=== PATIENT | female | born 1970 | race Native Hawaiian/Other Pacific Islander ===

== ENCOUNTER 2021-03-11 10:27 | Emergency (ER) | payer MEDICARE, MEDICAID, SELFPAY ==
[2021-03-11 10:29] VITALS: BP 161/99; PULSE 88; RESP 16; TEMP 36.6; O2SAT 96; BMI 44.6
--- NOTE | 2021-03-11 10:49 | CT_ITS ---
STUDY: CT BRAIN WITHOUT CONTRAST REASON FOR EXAM: Female, 51 years old. headache, dizzy RADIATION DOSAGE (If Supplied By Facility): CTDIvol = ( 44.99 ) mGy, DLP = ( 846.73 ) mGycm TECHNIQUE: Transaxial CT imaging of the brain was performed without administration of intravenous contrast material. Individualized dose optimization techniques were used for this CT. COMPARISON: No relevant priors. FINDINGS: Normal soft tissue structures. Normal calvarium. Normal size ventricles and extra-axial spaces for the patient''s age. Normal white matter tracts of the cerebral hemispheres. Normal basal ganglia and thalami. Normal brainstem. Normal cerebellum. There is no intracranial hemorrhage. There are no findings of an acute ischemic infarction. Normal visualized paranasal sinuses. CT/Brain/Head without Contrast IMPRESSION: Normal unenhanced CT scan of the brain. Electronically Signed: Nata David MD at 12:39 EDT Tel , Service support ,
--- NOTE | 2021-03-11 10:54 | ED.VIS.GEN ---
History of Present Illness Chief Complaint: Dizziness Informant: Patient Onset: Weeks - 2-3 Narrative: Patient here multiple complaints. reports past 2 to 3 weeks noted significant drainage bilateral ears. Denies pain or fevers. States wakes up noting drainage on pillows. Today with sinus congestion. No sore throat. No cough. States intermittent dizziness and headache. No falls or head injuries. History of lupus not currently on anticoagulation medicines. States has skin changes to lupus to right side of face and ear. Denies any redness. States also is having cramping bilateral arms and legs upon awakening. She states no history of diuretic use. Denies urinary symptoms. Perimenopausal with last menstrual period a month ago. Reports just moved here from [place] 2 months ago and has an appointment to get established with a physician. Past Medical History - Allergies and Home Meds Allergies/Adverse Reactions: Allergies codeine Adverse Reaction (Verified 03/11/21 10:29) Upset Stomach Past Medical History: - - Hypertension, diabetes, hyperlipidemia, lupus Review of Systems General: Denies: Chills, Fever, Sweats Eyes: Denies: Visual changes - bilaterally, Diplopia ENT: Denies: Bilateral ear pain, Rhinorrhea, Sore throat Cardiovascular: Denies: Chest pain, Palpitations Respiratory: Denies: Dyspnea, Cough, Dyspnea on exertion Gastrointestinal: Denies: Abdominal pain, Nausea, Vomiting, Diarrhea, Melena, Hematochezia Genitourinary: Denies: Dysuria, Hematuria, Frequency Musculoskeletal: Reports: Myalgias. Denies: Back pain, Extremity Pain Skin: Denies: Rash, Wounds Neurological: Reports: Headache, - - dizzy. Denies: Weakness, Numbness Physical Exam Vital Signs/Narrative: Vital Signs Temp Pulse Resp BP Pulse Ox 03/11/21 10:29 98 F 88 16 161/99 H 96 General: Well nourished, Well developed, No Acute Distress Head: Normocephalic, Atraumatic, - - TMs normal bilaterally. Mild erythema of the turbinates bilaterally. No posterior pharyngeal erythema. Eyes: Perrl, EOMI ENT: Moist mucous membranes, No rhinorrhea Neck: Supple, Nontender, - - No meningismus Cardiovascular: Regular rate, Regular rhythm, No murmurs Respiratory: No distress, CTA bilaterally, Chest nontender Abdomen: Soft, Nontender, Nondistended, Normal bowel sounds Back: Nontender, Normal Inspection Extremities: Nontender, No edema, - - Soft compartments of arms and legs. Skin: Normal color, No rash Neurological: Alert, Oriented x3, Cranial nerves II-XII grossly intact, Normal Strength, Normal Sensation Psychological: Normal affect, Normal Mood Diagnostic/Tx/Re-eval - Medical Decision Making Clinical Impression(s) from Imaging Studies Brain CT 03/11/21 10:49 IMPRESSION: Normal unenhanced CT scan of the brain. Electronically Signed: Nata David MD at 12:39 EDT Tel , Service support , Abnormal Lab Results 03/11/21 03/11/21 03/11/21 11:00 11:00 13:02 WBC 11.7 H RBC 4.35 Hgb 12.9 Hct 38.5 MCV 88.5 MCH 29.7 MCHC 33.5 RDW Std Deviation 42.4 RDW Coeff of Yoandy 13.2 Plt Count 360 MPV 9.9 Immature Gran % (Auto) 1.500 H Neut % (Auto) 53.1 Lymph % (Auto) 36.1 [place] % (Auto) 6.3 Eos % (Auto) 2.3 Baso % (Auto) 0.7 Absolute Neuts (auto) 6.2 Absolute Lymphs (auto) 4.21 Nucleated RBC % 0 Sodium 133 L Potassium 4.0 Chloride 98 Carbon Dioxide 26.0 Anion Gap 9 BUN 17 Creatinine 0.88 Estim Creat Clear Calc 66.04 Est GFR (MDRD) Af Amer 87 Est GFR (MDRD) Non-Af 72 BUN/Creatinine Ratio 19.3 Glucose 264 H Calcium 9.4 Urine Color Straw Urine Clarity Sl. Cloudy Urine pH 6.0 Ur Specific [place] 1.015 Urine Protein 30 H Urine Glucose (UA) 1000 H Urine Ketones Negative Urine Occult Blood Negative Urine Nitrite Negative Urine Bilirubin Negative Urine Urobilinogen Normal Ur Leukocyte Esterase Negative Urine RBC 0 SEEN Urine WBC 0 SEEN Ur Squamous Epith Cells 0-5 SEEN Urine Bacteria RARE Urine Mucus 0 SEEN Urine Test Negative Patient vitals stable with no focal neurological deficits. Presenting with multiple complaints. Ear examination notes normal TMs with no perforations. No signs of infection. CT head obtained for headache and dizziness which was normal. Labs all stable except for glucose of 264 normal gap. She has history of diabetes. Urine noted glucose from her diabetes history however no infection. She is up ambulating department with no return of symptoms. Discussed monitoring symptoms and following up with her scheduled PCP visit. ED Disposition - Plan for ED Patient: Disposition: Home or Assisted Living Diagnosis: Headache, Dizziness, Diabetes, Cramps, extremity Instructions: ED Dizziness, Uncertain Cause, Understanding Headache Pain, What Is Type 2 Diabetes? Additional Instructions: Monitor symptoms follow-up with your scheduled PCP visit.
[2021-03-11 11:16] LABS: Absolute Lymphocyte Count 4.21 X10^3/uL (0.83-4.51); Absolute Neutrophil Count 6.2 X10^3/uL (2.0-7.7); Basophil# 0.08 X10^3/uL; Basophil% 0.7 % (0-1); Eosinophil# 0.27 X10^3/uL; Eosinophils% 2.3 % (0-5); Hematocrit 38.5 % (37-47); Hemoglobin 12.9 g/dL (12.0-15.0); Lymphocyte # 4.21 X10^3/ul (0.83-4.51); Lymphocyte % 36.1 % (19-41); Mean Corp Hgb Conc 33.5 g/dL (32-36); Mean Corpuscular Hgb 29.7 pg (27.0-32.0); Mean Corpuscular Volume 88.5 fL (81-99); Mean Platelet Vol. 9.9 fl (6.2-12.0); Monocyte# 0.73 X10^3/uL; Monocyte% 6.3 % (0-10); NRBC Flagged by Analyzer 0 % (0-5); Neutrophil # 6.19 X10^3/uL (2.7-7.7); Neutrophil % 53.1 % (47-70); Platelet Count 360 K/mm3 (150-450); RBC Distribution Width CV 13.2 % (11.6-14.6); RBC Distribution Width SD 42.4 fl (35.1-43.9); Red Blood Count 4.35 M/mm3 (4.2-5.4); White Blood Count 11.7 K/mm3 (4.4-11.0)
[2021-03-11 11:24] LABS: Anion Gap 9 (5-15); BUN 17 mg/dL (7-18); BUN/Creat Ratio 19.3 RATIO (10-20); Calcium,Total 9.4 mg/dL (8.5-10.1); Chloride 98 mmol/L (98-107); Creatinine, Serum 0.88 mg/dL (0.55-1.02); EST Glomerular Filtration Rate 72 mL/min (>60); Est Glom Filt Rate - Afr Amer 87 mL/min (>60); Estimated Creatinine Clearance 66.04 ml/min; Glucose 264 mg/dL (74-106); Sodium Level 133 mmol/L (136-145)
[2021-03-11] MEDS: Ondansetron 4 MG/2 ML Vial IV (11:25)
[2021-03-11 13:13] LABS: Color, Urine Straw (Yellow); Glucose, Dipstick 1000 mg/dl (Normal); Ketone-Dipstick Negative (Negative); Leukocyte Esterase-Dipstick Negative /ul (Negative); Mucous, Urine 0 SEEN /hpf (<or=2+); Nitrite-Dipstick Negative (Negative); Occult Blood-Urine Negative /ul (Negative); Protein-Dipstick 30 mg/dl (Negative); Red Blood Cells-Urine 0 SEEN /hpf (0-5); Specific Gravity, Urine 1.015 (1.002-1.030); Urine Bilirubin Dipstick Negative (Negative); Urine Clarity Sl. Cloudy (Clear); Urine Urobilinogen Normal (Normal); White Blood Cells 0 SEEN /hpf (0-5)
[2021-03-11 13:16] LABS: Internal QC Validated? YES +Cl - CLEAR BKGD; Pregnancy, Urine Negative Negative
[2021-03-11 13:19] LABS: Bacteria RARE /hpf (None Seen); Squamous Epithelial Cells - UA 0-5 SEEN /hpf (5-10)
[2021-03-11 13:29] VITALS: BP 105/64; PULSE 77; RESP 16; O2SAT 98
[2021-03-11 13:58] VITALS: BP 124/67; PULSE 78; RESP 16; TEMP 36.8; O2SAT 98
== END 2021-03-11 13:59 | disposition home or self-care (01) ==
PROVIDERS: Emergency Provider Emergency Medicine
DX: R42 Dizziness and giddiness (principal); R51.9 Headache, unspecified; E11.9 Type 2 diabetes mellitus without complications; R25.2 Cramp and spasm; I10 Essential (primary) hypertension; E78.5 Hyperlipidemia, unspecified; M32.9 Systemic lupus erythematosus, unspecified; Z88.5 Allergy status to narcotic agent
CPT/HCPCS: 70450; 80048; 81001; 81025; 85025; 96361; 96374; 99283; J7030; A4216; J2405

== ENCOUNTER 2021-04-09 17:20 | Emergency (ER) | payer MEDICARE, MEDICAID, SELFPAY ==
[2021-04-09 17:20] VITALS: BP 131/88; PULSE 89; RESP 15; TEMP 36.7; O2SAT 95; BMI 44.9
--- NOTE | 2021-04-09 18:18 | RAD_ITS ---
STUDY: X-RAY CHEST REASON FOR EXAM: Female, 51 years old. Cough. Runny nose and cough for one day. History of pneumonia 3-4 weeks ago. TECHNIQUE: Single AP portable view of the chest. COMPARISON: None. FINDINGS: The lungs are well expanded. No focal mass or infiltrate. There is no demonstrated pleural abnormality. Normal size heart. Normal mediastinum and leonela. Normal visualized pulmonary arteries. Normal visualized aortic arch and descending thoracic aorta. There are diffuse degenerative changes of the visualized thoracic spine. There is degenerative osteoarthritis of the bilateral shoulders. There is no demonstrated abnormality of the visualized soft tissue structures of the upper abdomen. RAD/Chest 1 View (Portable) IMPRESSION: Degenerative changes, as described above. No demonstrated acute cardiopulmonary process. Electronically Signed: Pilo Jane DO at 18:44 EDT Tel [phone], Service support ,
[2021-04-09 19:34] LABS: Probe Check PASS; Specimen Processing Control PASS
--- NOTE | 2021-04-09 19:40 | EX.ED.DYSGE1 ---
HPI History of Present Illness Chief Complaint: Cold Sx Narrative Narrative: Patient presenting for evaluation secondary to cold type symptoms. Patient does report that she has an underlying history of smoking and asthma. She states that around a month ago she had a chest x-ray that demonstrated pneumonia she went on a course of antibiotics and she got better. Patient states that in the last 24 hours she has had another onset of upper respiratory type symptoms. She reports that she has nasal congestion, drainage down the back of her throat, and a cough that is intermittently productive. She does state that she feels mildly short of breath associated with this. She states that she has sweats but has not actually taken her temperature at home. Patient denies any chest pain. She denies any nausea or vomiting. She does report that in the week prior to this she had some mild loose stools, no blood or mucus in her stool. She denies any immunosuppression. Review of systems otherwise negative. [facility] Medical History Diabetes Hypertension Hypothyroidism Home Medications fluticasone propionate [Allergy Relief (fluticasone)] 1 spray INTRANASAL BID #16 g 04/09/21 [Rx Last Taken Unknown] Allergy/AdvReac Type Severity Reaction Status Date / Time codeine AdvReac Upset Verified 03/11/21 10:29 Stomach Social History Smoking Status: Current every day smoker [facility] ED Constitutional Constitutional ED: Reports chills and sweats; Denies fever(s) ENT ENT ED: Reports rhinorrhea and sore throat Cardiovascular Cardiovascular: Denies chest pain Respiratory/Chest Respiratory/Chest: Reports cough and dyspnea Gastrointestinal Gastrointestinal: Reports diarrhea; Denies abdominal pain, nausea or vomiting Genitourinary Genitourinary ED: Denies dysuria or hematuria Musculoskeletal Musculoskeletal: Denies back pain Integumentary Denies rash Neurologic Neurologic: Denies paresthesias or weakness Psychiatric Psychiatric: Denies depression Endocrine Endocrinology: Denies fatigue Allergic/Immunologic Allergic/Immunologic ED: Denies urticaria EXAM Physical Exam Const Vital Signs: 04/09/21 17:20 04/09/21 17:25 Temperature 98.1 F Temperature Source Temporal Pulse Rate 89 Respiratory Rate 15 Respiratory Effort Normal Non-Labored Respiratory Pattern Normal Blood Pressure 131/88 H Blood Pressure Mean 102 Pulse Ox 95 Oxygen Delivery Method Room Air Room Air Positive well nourished and well developed General Appearance ED: well developed and NAD HEENT Reports moist mucous membranes HEENT Narrative: No signs of posterior pharyngeal erythema asymmetry or posterior fullness. Negative for trauma or tenderness Eyes EOMs intact bilaterally Neck no lymphadenopathy, supple and no JVD Chest Wall inspection of chest normal Resp normal respiratory effort and clear to auscultation bilaterally Cardio regular rate, regular rhythm, no murmurs and peripheral pulses 2+ throughout GI normal to inspection, nondistended, normoactive bowel sounds, non-tender and no masses Palpation: soft Back/Spine normal to inspection Extremity normal to inspection General Extremety ED: Negative for tenderness Neuro oriented x3 and no sensory deficits noted Sensorium / Orientation: alert Motor Exam: strength 5/5 throughout Psych mental status grossly normal Skin no rashes or lesions noted MDM MDM MDM Narrative Medical decision making narrative: Patient presented with respiratory complaints and was concerned that she potentially had a coronavirus infection. A chest x-ray was obtained due to her recent history of pneumonia, by my personal interpretation as well as radiology this found to be negative. Coronavirus testing was found to be negative. Patient will be discharged with a course of Flonase and other symptomatic treatments. She was discharged in stable condition. Lab Data Labs: Laboratory Results - last 24 hr 04/09/21 18:20 COVID-19 (LOY) Negative Radiography Chest X-Ray - ED: Read by ED Physician and Normal Diagnostic Testing: Radiology Impression Chest X-Ray 04/09/21 18:18 IMPRESSION: Degenerative changes, as described above. No demonstrated acute cardiopulmonary process. Electronically Signed: Pilo Jane DO at 18:44 EDT Tel [phone], Service support , Discharge Plan Triage Chief Complaint: Cold Sx ED Provider: Ramiro Cabrera Dx/Rx/DC Orders Clinical Impression: Upper respiratory tract infection Instructions: ED URI, Viral, No Abx (Adult) Prescriptions: New fluticasone propionate [Allergy Relief (fluticasone)] 50 mcg/actuation spray,suspension 1 spray intranasal BID Qty: 16 RF: 0 Referrals: Tea Holbrook [NON-STAFF] - Disposition Disposition: Home, self care
[2021-04-09 19:54] VITALS: RESP 20
== END 2021-04-09 19:54 | disposition home or self-care (01) ==
PROVIDERS: Emergency Provider Emergency Medicine
DX: J06.9 Acute upper respiratory infection, unspecified (principal); Z87.01 Personal history of pneumonia (recurrent); F17.200 Nicotine dependence, unspecified, uncomplicated; E11.9 Type 2 diabetes mellitus without complications; I10 Essential (primary) hypertension; E03.9 Hypothyroidism, unspecified; J45.909 Unspecified asthma, uncomplicated
CPT/HCPCS: 71045; 87635; 99282; U0002

== ENCOUNTER 2021-04-12 16:05 | Emergency (ER) | payer MEDICARE, MEDICAID, SELFPAY ==
[2021-04-12 16:06] VITALS: BP 140/79; PULSE 94; RESP 16; TEMP 35.7; O2SAT 94; BMI 46.5
[2021-04-12 16:21] LABS: Bedside Glucose 382 mg/dL (70-110)
--- NOTE | 2021-04-12 16:41 | EKG12_ITS ---
Test Reason : Blood Pressure : / mmHG Vent. Rate : 084 BPM Atrial Rate : 084 BPM P-R Int : 194 ms QRS Dur : 086 ms QT Int : 360 ms P-R-T Axes : 046 028 042 degrees QTc Int : 425 ms Normal sinus rhythm Normal ECG Confirmed by BECKIE RENAE, IVAN ([id number]), social media editor TINY MONET ([id number]) on 04/15/2021 9:34:04 AM Referred By: RU Confirmed By:IVAN BUTTS MD
--- NOTE | 2021-04-12 16:43 | ED.VIS.DYS ---
HPI History of Present Illness Chief Complaint: Shortness of Breath Detail of Chief Complaint: Patient with shortness of breath and cough for about a week Informant: patient Narrative Narrative: Patient seen in the emergency department 3 days ago for complaint of cough. She had a negative Covid test. Patient denies exposures to anybody with Covid. She has not been vaccinated against Covid. Patient states that she has been feeling short of breath at times and also has history of severe anxiety so she is not sure what is causing her dyspnea. She continues to cough and the cough is mostly nonproductive. She denies fever but she has had sweats. Patient has history of diabetes as well as hypertension and history of chronic back pain. She denies headache. She does have body aches which are relatively chronic. PE Risk Factors: Positive for OCP + Smoking + > 35; Negative for Cancer, Prior DVT or PE, Recent immobilization, Recent surgery and Recent travel Prior similar symptoms: No PFSH PFSH Medical History Diabetes Hypertension Hypothyroidism Home Medications fluticasone propionate [Allergy Relief (fluticasone)] 1 spray INTRANASAL BID #16 g 04/09/21 [Rx Last Taken Unknown] doxycycline monohydrate 100 mg PO BID #20 capsule 04/12/21 [Rx Last Taken Unknown] Allergy/AdvReac Type Severity Reaction Status Date / Time codeine AdvReac Upset Verified 04/12/21 16:05 Stomach Social History Smoking Status: Current every day smoker [facility] ED Constitutional Constitutional ED: Reports systems reviewed and no addt'l complaints, except as documented; Denies body ache(s), change in weight or chills Eyes Eyes: Denies acute decrease in peripheral vision, change in vision, double vision or loss of vision ENT ENT ED: Reports none; Denies ear pain, lip swelling, loss taste/smell, neck pain, otalgia or sore throat Cardiovascular Cardiovascular: Reports none; Denies abdominal pain, chest pain with activity, leg edema, lightheadedness, palpitations, rapid heart rate or syncope Respiratory/Chest Respiratory/Chest: Reports none, cough and dyspnea; Denies change in mental status, dry cough, hemoptysis, shortness of breath at rest, shortness of breath with exertion or sputum Gastrointestinal Gastrointestinal: Reports none; Denies abdominal pain, change in stool character, diarrhea, hematemesis, hematochezia, melena, rectal bleeding or vomiting Genitourinary Genitourinary ED: Reports none; Denies abdominal discomfort, anuria, dysuria, genital pain or polyuria Musculoskeletal Musculoskeletal: Reports none; Denies arthralgias, back pain, difficulty walking, extremity pain, muscle weakness or myalgias Integumentary Reports none; Denies abscess or rash Neurologic Neurologic: Reports none; Denies abnormal gait, confusion, focal weakness, frequent falls, headache(s), loss of vision, numbness, paresthesias, radicular pain, vertigo or weakness Psychiatric Psychiatric: Reports systems reviewed and no addt'l complaints, except as documented and none; Denies behavioral changes, confusion, difficulty concentrating, hallucinations, suicidal ideation, tactile hallucinations or visual hallucinations Endocrine Endocrinology: Denies none, cold intolerance, excessive sweating, fatigue or heat intolerance Hematologic/Lymphatic Hematologic/Lymphatic: Reports none; Denies anemia, easy bleeding or easy bruising Allergic/Immunologic Allergic/Immunologic ED: Denies as per HPI, none, lip swelling, mouth swelling, throat swelling, tongue swelling or hives EXAM Physical Exam Const Vital Signs: 04/12/21 16:06 04/12/21 17:11 04/12/21 18:57 Temperature 96.3 F L Temperature Source Temporal Pulse Rate 94 86 Respiratory Rate 16 18 Respiratory Effort Short of Breath Respiratory Depth Normal Respiratory Pattern Normal Blood Pressure 140/79 H 127/89 H Blood Pressure Mean 99 101 Pulse Ox 94 97 Oxygen Delivery Method Room Air Room Air Room Air Positive well nourished and well developed General Appearance ED: well developed and NAD HEENT Reports TM's clear and moist mucous membranes normocephalic and atraumatic; Negative for trauma or tenderness Tympanic Membrane ED: Yes TM's clear Eyes PERRL and EOMs intact bilaterally General Eye ED: Negative for pale conjunctiva or scleral icterus Neck no lymphadenopathy, supple and no JVD General: Negative for tenderness Chest Wall inspection of chest normal and palpation of chest normal Chest: Negative for tenderness Resp normal respiratory effort and No clear to auscultation bilaterally Effort and Inspection: Negative for respiratory distress or pain with movement Auscultation: rhonchi and wheezes; Negative for diminished lung sounds Cardio regular rate, regular rhythm, S1 normal heart sound, S2 normal heart sound and no murmurs Peripheral Pulses: pulses 2+ throughout GI normal to inspection, nondistended, normoactive bowel sounds, soft to palpation, non-tender, non-distended and no masses Back/Spine no CVA tenderness and no thoracic nor lumbar tenderness Extremity normal to inspection General Extremety ED: Negative for edema General Extremity: Negative for edema Neuro oriented x3, CN's II-XII intact bilaterally, no sensory deficits noted and gait normal Sensorium / Orientation: awake, alert, oriented to person, oriented to place and oriented to time Motor Exam: strength 5/5 throughout and strength abnormal Psych mental status grossly normal Skin no rashes or lesions noted and no wounds MDM MDM MDM Narrative Medical decision making narrative: Patient was given albuterol MDI and felt improved. I will cover her with doxycycline to cover for bacterial etiology as she is coughing up some green to yellow sputum. Patient will be dispensed the albuterol MDI. She is advised to return if increasing shortness of breath or condition should worsen anyway. Patient to follow-up with her primary care physician within next 3 to 5 days. Lab Data Attestation: I reviewed the patient's lab results. Labs: Laboratory Results - last 24 hr 04/12/21 04/12/21 04/12/21 16:15 17:00 17:00 WBC 11.6 H RBC 4.35 Hgb 12.9 Hct 38.7 MCV 89.0 MCH 29.7 MCHC 33.3 RDW Std Deviation 41.5 RDW Coeff of Yoandy 12.6 Plt Count 374 MPV 9.9 Immature Gran % (Auto) 0.900 Neut % (Auto) 57.0 Lymph % (Auto) 29.6 [place] % (Auto) 8.4 Eos % (Auto) 3.5 Baso % (Auto) 0.6 Absolute Neuts (auto) 6.6 Absolute Lymphs (auto) 3.44 Nucleated RBC % 0 D-Dimer Quant (PE/DVT) 0.29 Sodium Potassium Chloride Carbon Dioxide Anion Gap BUN Creatinine Estim Creat Clear Calc Est GFR (MDRD) Af Amer Est GFR (MDRD) Non-Af BUN/Creatinine Ratio Glucose Lactic Acid Calcium COVID-19 (LOY) POC Glucose 382 H 05/22/21 05/22/21 05/22/21 17:00 17:00 17:07 WBC RBC Hgb Hct MCV MCH MCHC RDW Std Deviation RDW Coeff of Yoandy Plt Count MPV Immature Gran % (Auto) Neut % (Auto) Lymph % (Auto) [place] % (Auto) Eos % (Auto) Baso % (Auto) Absolute Neuts (auto) Absolute Lymphs (auto) Nucleated RBC % D-Dimer Quant (PE/DVT) Sodium 135 L Potassium 4.1 Chloride 100 Carbon Dioxide 27.0 Anion Gap 8 BUN 16 Creatinine 0.99 Estim Creat Clear Calc 61.17 Est GFR (MDRD) Af Amer 76 Est GFR (MDRD) Non-Af 63 BUN/Creatinine Ratio 16.2 Glucose 332 H Lactic Acid 1.8 Calcium 9.5 COVID-19 (LOY) Not Detected POC Glucose Radiography Chest X-Ray - ED: 1 View Diagnostic Testing: Radiology Impression Chest X-Ray 04/12/21 17:52 IMPRESSION: Nonacute portable x-ray examination of the chest. Electronically Signed: Pedro Montoya MD (Brooks) at 18:06 EDT , Service support , 1 view chest x-ray obtained revealed no acute disease process as interpreted by myself. Radiology in agreement. EKG Initial EKG: Comments: Normal sinus rhythm with a ventricular rate of 84 bpm with no acute ST segment changes noted Discharge Plan Triage Chief Complaint: Shortness of Breath ED Provider: Chrissy Amaya Dx/Rx/DC Orders Clinical Impression: Acute upper respiratory infection Instructions: ED Upper Resp Infec Abx Tx Prescriptions: New doxycycline monohydrate 100 MG capsule 100 mg PO BID Qty: 20 RF: 0 No Action fluticasone propionate [Allergy Relief (fluticasone)] 50 mcg/actuation spray,suspension 1 spray intranasal BID Qty: 16 RF: 0 Primary Care Provider: Sajan Cantu Referrals: Sajan Cantu MD [Primary Care Provider] - 3-5 Days Disposition Disposition: Home, self care
[2021-04-12 17:11] VITALS: O2SAT 94
[2021-04-12 17:15] LABS: Absolute Lymphocyte Count 3.44 X10^3/uL (0.83-4.51); Absolute Neutrophil Count 6.6 X10^3/uL (2.0-7.7); Basophil# 0.07 X10^3/uL; Basophil% 0.6 % (0-1); Eosinophil# 0.41 X10^3/uL; Eosinophils% 3.5 % (0-5); Hematocrit 38.7 % (37-47); Hemoglobin 12.9 g/dL (12.0-15.0); Lymphocyte # 3.44 X10^3/ul (0.83-4.51); Lymphocyte % 29.6 % (19-41); Mean Corp Hgb Conc 33.3 g/dL (32-36); Mean Corpuscular Hgb 29.7 pg (27.0-32.0); Mean Platelet Vol. 9.9 fl (6.2-12.0); Monocyte# 0.98 X10^3/uL; Monocyte% 8.4 % (0-10); NRBC Flagged by Analyzer 0 % (0-5); Neutrophil # 6.62 X10^3/uL (2.7-7.7); Platelet Count 374 K/mm3 (150-450); RBC Distribution Width CV 12.6 % (11.6-14.6); RBC Distribution Width SD 41.5 fl (35.1-43.9); Red Blood Count 4.35 M/mm3 (4.2-5.4); White Blood Count 11.6 K/mm3 (4.4-11.0)
[2021-04-12 17:34] LABS: D-Dimer Quantitative (DVT/PE) 0.29 FEU/ug/m (0.27-0.49)
[2021-04-12 17:35] LABS: Anion Gap 8 (5-15); BUN 16 mg/dL (7-18); BUN/Creat Ratio 16.2 RATIO (10-20); Calcium,Total 9.5 mg/dL (8.5-10.1); Chloride 100 mmol/L (98-107); Creatinine, Serum 0.99 mg/dL (0.55-1.02); EST Glomerular Filtration Rate 63 mL/min (>60); Est Glom Filt Rate - Afr Amer 76 mL/min (>60); Estimated Creatinine Clearance 61.17 ml/min; Glucose 332 mg/dL (74-106); Potassium 4.1 mmol/L (3.5-5.1); Sodium Level 135 mmol/L (136-145)
[2021-04-12 17:38] LABS: Lactic Acid 1.8 mmol/L (0.4-1.9)
--- NOTE | 2021-04-12 17:52 | RAD_ITS ---
STUDY: X-RAY CHEST REASON FOR EXAM: Female, 51 years old. dyspnea TECHNIQUE: AP COMPARISON: 04/09/2021 FINDINGS: EKG leads project over the chest. The lungs are clear and expanded. There is no demonstrated pleural abnormality. Normal size heart. Normal mediastinum and leonela. Normal visualized pulmonary arteries. Normal visualized aortic arch and descending thoracic aorta. No acute bony process. There is no demonstrated abnormality of the visualized soft tissue structures of the upper abdomen. RAD/Chest 1 View (Portable) IMPRESSION: Nonacute portable x-ray examination of the chest. Electronically Signed: Pedro Montoya MD ([place]oks) at 18:06 EDT , Service support ,
[2021-04-12 18:57] VITALS: BP 127/89; PULSE 86; RESP 18; O2SAT 97
[2021-04-12] MEDS: Doxycycline 100 MG CAPSULE PO (20:27)
[2021-04-12 20:30] VITALS: BP 127/64; PULSE 96; RESP 18; O2SAT 96
== END 2021-04-12 20:31 | disposition home or self-care (01) ==
PROVIDERS: Emergency Provider Emergency Medicine; PCP Family Medicine
DX: J06.9 Acute upper respiratory infection, unspecified (principal); E11.9 Type 2 diabetes mellitus without complications; I10 Essential (primary) hypertension; E03.9 Hypothyroidism, unspecified; F17.200 Nicotine dependence, unspecified, uncomplicated; M54.9 Dorsalgia, unspecified; G89.29 Other chronic pain
CPT/HCPCS: 71045; 80048; 82962; 83605; 85025; 85379; 87040; 87635; 93005; 99285; U0002

== ENCOUNTER 2021-06-05 17:40 | Emergency (ER) | payer MEDICARE, MEDICAID, SELFPAY ==
[2021-06-05 17:41] VITALS: BP 163/95; PULSE 86; RESP 23; TEMP 36.8; O2SAT 96; BMI 46.7
--- NOTE | 2021-06-05 17:46 | EKG12_ITS ---
Test Reason : CP Blood Pressure : / mmHG Vent. Rate : 082 BPM Atrial Rate : 082 BPM P-R Int : 214 ms QRS Dur : 086 ms QT Int : 372 ms P-R-T Axes : 027 017 034 degrees QTc Int : 434 ms Sinus rhythm with 1st degree A-V block Otherwise normal ECG Confirmed by JOSELINE RENAE, MISTI ([id number]), news editor TINY MONET ([id number]) on 06/09/2021 9:44:48 AM Referred By: DOUGLAS Confirmed By:JAKE TREVIZO MD
[2021-06-05 18:18] VITALS: O2SAT 99
[2021-06-05 18:26] VITALS: BP 118/84; PULSE 75; RESP 16; O2SAT 98
[2021-06-05 18:35] LABS: Absolute Lymphocyte Count 3.21 X10^3/uL (0.83-4.51); Basophil# 0.05 X10^3/uL; Basophil% 0.5 % (0-1); Eosinophil# 0.31 X10^3/uL; Eosinophils% 3.3 % (0-5); Hematocrit 36.6 % (37-47); Hemoglobin 12.3 g/dL (12.0-15.0); Lymphocyte # 3.21 X10^3/ul (0.83-4.51); Lymphocyte % 34.5 % (19-41); Mean Corp Hgb Conc 33.6 g/dL (32-36); Mean Corpuscular Hgb 29.5 pg (27.0-32.0); Mean Corpuscular Volume 87.8 fL (81-99); Mean Platelet Vol. 10.1 fl (6.2-12.0); Monocyte# 0.64 X10^3/uL; Monocyte% 6.9 % (0-10); NRBC Flagged by Analyzer 0 % (0-5); Neutrophil # 5.03 X10^3/uL (2.7-7.7); Neutrophil % 54.2 % (47-70); Platelet Count 365 K/mm3 (150-450); RBC Distribution Width CV 12.7 % (11.6-14.6); RBC Distribution Width SD 40.8 fl (35.1-43.9); Red Blood Count 4.17 M/mm3 (4.2-5.4); White Blood Count 9.3 K/mm3 (4.4-11.0)
--- NOTE | 2021-06-05 18:44 | RAD_ITS ---
HISTORY: chest pain EXAMINATION/TECHNIQUE: XR Chest 1 View: Portable upright AP chest x-ray COMPARISON: 04/12/21 FINDINGS: LINES/DEVICES: None. LUNGS: No consolidation, edema or effusion. No pneumothorax. MEDIASTINUM AND CARDIOVASCULAR STRUCTURES: Cardiac silhouette not enlarged. Central airways and mediastinal contour are unremarkable. BONES AND SOFT TISSUES: No acute bony abnormalities. RAD/Chest 1 View (Portable) IMPRESSION: No radiographic evidence of acute cardiopulmonary disease. at 1906 Reported and signed by: Angus Booth MD Electronically Signed: Angus Booth MD at 19:05 EDT Tel , Service support ,
[2021-06-05 18:51] LABS: Anion Gap 11 (5-15); BUN 19 mg/dL (7-18); Chloride 100 mmol/L (98-107); Creatinine, Serum 0.95 mg/dL (0.55-1.02); EST Glomerular Filtration Rate 66 mL/min (>60); Est Glom Filt Rate - Afr Amer 80 mL/min (>60); Estimated Creatinine Clearance 63.75 ml/min; Glucose 289 mg/dL (74-106); Potassium 3.8 mmol/L (3.5-5.1); Sodium Level 137 mmol/L (136-145); Troponin-I HS 4.8 pg/mL (3.0-53.7)
--- NOTE | 2021-06-05 18:58 | EDS_ITS ---
HPI History of Present Illness Chief Complaint: Palpitations Detail of Chief Complaint: Chest tightness and jaw tightness Informant: patient Narrative Narrative: Patient presents to the emergency department with complaint of chest tightness and intermittent jaw tightness for the last 3 weeks. Patient states that she has been to this ER 3 times and has had pneumonia several times. She has multiple complaints today including intermittent difficulty with vision in her right eye and weakness in both legs at times. Patient complains of intermittent neck pain. Patient complains of palpitations and intermittent paresthesias. She is not sure if her lupus is flaring up. Patient recently moved to the area from [place] of town. Patient does not have history of PE or DVT. She is not had Covid and has not had the Covid vaccine. Prior similar symptoms: Yes PFSH PFSH Medical History (Updated 06/05/21 @ 21:[address] Chrissy Amaya DO) Diabetes Hypertension Hypothyroidism Lupus Home Medications doxycycline monohydrate 100 mg PO BID #14 capsule 06/05/21 [Rx Last Taken Unknown] fenofibrate 134 mg PO DAILY 06/05/21 [History Last Taken Unknown] fluconazole [Diflucan] 150 mg PO DAILY #1 tab 06/05/21 [Rx Last Taken Unknown] insulin glargine [Basaglar KwikPen U-100 Insulin] 25 unit SUBCUT QHS 06/05/21 [History Last Taken Unknown] levothyroxine 200 mcg PO DAILY 06/05/21 [History Last Taken Unknown] lisinopril 10 mg PO DAILY 06/05/21 [History Last Taken Unknown] metformin 1,000 mg PO BID 06/05/21 [History Last Taken Unknown] omeprazole 40 mg PO DAILY 06/05/21 [History Last Taken Unknown] sitagliptin [Januvia] 50 mg PO DAILY 06/05/21 [History Last Taken Unknown] Allergy/AdvReac Type Severity Reaction Status Date / Time codeine AdvReac Upset Verified 06/05/21 17:40 Stomach Social History Smoking Status: Current every day smoker tobacco type: cigarettes ROS ROS ED Constitutional Constitutional ED: Reports systems reviewed and no addt'l complaints, except as documented; Denies body ache(s), change in weight or chills Eyes Eyes: Denies acute decrease in peripheral vision, change in vision, double vision or loss of vision ENT ENT ED: Reports none; Denies ear pain, lip swelling, loss taste/smell, neck pain, otalgia or sore throat Cardiovascular Cardiovascular: Reports none, chest pain and palpitations; Denies abdominal pain, chest pain with activity, leg edema, lightheadedness, rapid heart rate or syncope Respiratory/Chest Respiratory/Chest: Reports none, cough and dyspnea; Denies change in mental status, dry cough, hemoptysis, shortness of breath at rest or shortness of breath with exertion Gastrointestinal Gastrointestinal: Reports none; Denies abdominal pain, change in stool character, diarrhea, hematemesis, hematochezia, melena, rectal bleeding or vomiting Genitourinary Genitourinary ED: Reports none; Denies abdominal discomfort, anuria, dysuria, genital pain or polyuria Musculoskeletal Musculoskeletal: Reports none; Denies arthralgias, back pain, difficulty walking, extremity pain, muscle weakness or myalgias Integumentary Reports none; Denies abscess or rash Neurologic Neurologic: Reports none; Denies abnormal gait, confusion, focal weakness, frequent falls, headache(s), loss of vision, numbness, paresthesias, radicular pain, vertigo or weakness Psychiatric Psychiatric: Reports systems reviewed and no addt'l complaints, except as documented and none; Denies behavioral changes, confusion, difficulty concentrating, hallucinations, suicidal ideation, tactile hallucinations or visual hallucinations Endocrine Endocrinology: Denies none, cold intolerance, excessive sweating, fatigue or heat intolerance Hematologic/Lymphatic Hematologic/Lymphatic: Reports none; Denies anemia, easy bleeding or easy bruising Allergic/Immunologic Allergic/Immunologic ED: Denies as per HPI, none, lip swelling, mouth swelling, throat swelling, tongue swelling or hives EXAM Physical Exam Const Vital Signs: 06/05/21 17:41 06/05/21 18:18 06/05/21 18:26 Temperature 98.2 F Temperature Source Oral Pulse Rate 86 75 Respiratory Rate 23 H 16 Respiratory Effort Normal Non-Labored Respiratory Pattern Normal Blood Pressure 163/95 H 118/84 H Blood Pressure Mean 117 95 Pulse Ox 96 99 98 Oxygen Delivery Method Room Air Room Air Room Air 06/05/21 19:27 Temperature Temperature Source Pulse Rate Respiratory Rate Respiratory Effort Respiratory Pattern Blood Pressure 131/76 H Blood Pressure Mean 94 Pulse Ox Oxygen Delivery Method Positive well nourished and well developed General Appearance ED: well developed and NAD HEENT Reports TM's clear and moist mucous membranes normocephalic and atraumatic; Negative for trauma or tenderness Tympanic Membrane ED: Yes TM's clear Eyes PERRL and EOMs intact bilaterally General Eye ED: Negative for pale conjunctiva or scleral icterus Neck no lymphadenopathy, supple and no JVD General: Negative for tenderness Chest Wall inspection of chest normal and palpation of chest normal Chest: Negative for tenderness Resp normal respiratory effort and clear to auscultation bilaterally Effort and Inspection: Negative for respiratory distress or pain with movement Auscultation: Negative for rhonchi, wheezes or diminished lung sounds Cardio regular rate, regular rhythm, S1 normal heart sound, S2 normal heart sound and no murmurs Peripheral Pulses: pulses 2+ throughout GI normal to inspection, nondistended, normoactive bowel sounds, soft to palpation, non-tender, non-distended and no masses Back/Spine no CVA tenderness and no thoracic nor lumbar tenderness Extremity normal to inspection General Extremety ED: Negative for edema General Extremity: Negative for edema Neuro oriented x3, CN's II-XII intact bilaterally, no sensory deficits noted and gait normal Sensorium / Orientation: awake, alert, oriented to person, oriented to place and oriented to time Motor Exam: strength 5/5 throughout and strength abnormal Psych mental status grossly normal Skin no rashes or lesions noted and no wounds MDM MDM MDM Narrative Medical decision making narrative: Patient's work-up was essentially unremarkable in the emergency department. Her sister is with her now. Patient has lupus and I feel a lot of her issues are related to her lupus potentially. She is awaiting follow-up with Dr. Bryan. I do not feel patient is having acute coronary syndrome. Patient apparently is been coughing up some [place] sputum in the past when she is had doxycycline typically cleared up her issues. I will write her for Doxy for a week and also a Diflucan as last if she had a yeast infection. Lab Data Attestation: I reviewed the patient's lab results. Labs: Laboratory Results - last 24 hr 06/05/21 06/05/21 06/05/21 18:15 18:15 19:10 WBC 9.3 RBC 4.17 L Hgb 12.3 Hct 36.6 L MCV 87.8 MCH 29.5 MCHC 33.6 RDW Std Deviation 40.8 RDW Coeff of Yoandy 12.7 Plt Count 365 MPV 10.1 Immature Gran % (Auto) 0.600 Neut % (Auto) 54.2 Lymph % (Auto) 34.5 [place] % (Auto) 6.9 Eos % (Auto) 3.3 Baso % (Auto) 0.5 Absolute Neuts (auto) 5.0 Absolute Lymphs (auto) 3.21 Nucleated RBC % 0 D-Dimer Quant (PE/DVT) Sodium 137 Potassium 3.8 Chloride 100 Carbon Dioxide 26.0 Anion Gap 11 BUN 19 H Creatinine 0.95 Estim Creat Clear Calc 63.75 Est GFR (MDRD) Af Amer 80 Est GFR (MDRD) Non-Af 66 BUN/Creatinine Ratio 20.0 Glucose 289 H Calcium 9.0 Troponin I High Sens 4.8 Urine Color Yellow Urine Clarity Sl. Cloudy Urine pH 5.0 Ur Specific [place] 1.020 Urine Protein 15 H Urine Glucose (UA) 1000 H Urine Ketones Negative Urine Occult Blood 25 H Urine Nitrite Negative Urine Bilirubin Negative Urine Urobilinogen Normal Ur Leukocyte Esterase 25 H Urine RBC 0-5 SEEN Urine WBC 0-5 SEEN Ur Squamous Epith Cells 0-5 SEEN Urine Bacteria 0 SEEN Urine Mucus 0 SEEN 06/05/21 19:20 WBC RBC Hgb Hct MCV MCH MCHC RDW Std Deviation RDW Coeff of [place] Plt Count MPV Immature Gran % (Auto) Neut % (Auto) Lymph % (Auto) [place] % (Auto) Eos % (Auto) Baso % (Auto) Absolute Neuts (auto) Absolute Lymphs (auto) Nucleated RBC % D-Dimer Quant (PE/DVT) 0.41 Sodium Potassium Chloride Carbon Dioxide Anion Gap BUN Creatinine Estim Creat Clear Calc Est GFR (MDRD) Af Amer Est GFR (MDRD) Non-Af BUN/Creatinine Ratio Glucose Calcium Troponin I High Sens Urine Color Urine Clarity Urine pH Ur Specific [place] Urine Protein Urine Glucose (UA) Urine Ketones Urine Occult Blood Urine Nitrite Urine Bilirubin Urine Urobilinogen Ur Leukocyte Esterase Urine RBC Urine WBC Ur Squamous Epith Cells Urine Bacteria Urine Mucus Radiography Chest X-Ray - ED: 1 View Diagnostic Testing: Radiology Impression Chest X-Ray 06/05/21 18:44 IMPRESSION: No radiographic evidence of acute cardiopulmonary disease. at 1906 Reported and signed by: Angus Booth MD Electronically Signed: Angus Booth MD at 19:05 EDT Tel , Service support , 1 view chest x-ray obtained interpreted by myself as no acute disease process. EKG Initial EKG: Attestation: I personally reviewed and interpreted this EKG as follows: Comments: Sinus rhythm with ventricular rate of 82 bpm with a first-degree AV block Discharge Plan Triage Chief Complaint: Palpitations ED Provider: Chrissy Amaya Dx/Rx/DC Orders Clinical Impression: Upper respiratory tract infection, Chest pain of uncertain etiology Instructions: Acute Bronchitis, ED Chest Pain, Uncertain Cause Prescriptions: New doxycycline monohydrate 100 MG capsule 100 mg PO BID Qty: 14 RF: 0 fluconazole [Diflucan] 150 mg tablet 150 mg PO DAILY Qty: 1 RF: 0 No Action levothyroxine 200 mcg Capsule 200 mcg PO DAILY RF: 0 metformin 1,000 mg Tablet 1,000 mg PO BID RF: 0 Januvia 50 mg Tablet 50 mg PO DAILY RF: 0 lisinopril 10 mg Tablet 10 mg PO DAILY RF: 0 Basaglar KwikPen U-100 Insulin 100 unit/mL (3 mL) Insulin Pen 25 unit SUBCUT QHS RF: 0 fenofibrate 54 mg Tablet 134 mg PO DAILY RF: 0 omeprazole 40 mg Capsule,Delayed Release(Dr/Ec) 40 mg PO DAILY RF: 0 Primary Care Provider: Sajan Cantu Referrals: Sajan Cantu MD [Primary Care Provider] - 3-5 Days Disposition Disposition: Home, Self Care
[2021-06-05 19:18] LABS: Bacteria 0 SEEN /hpf (None Seen); Mucous, Urine 0 SEEN /hpf (<or=2+)
[2021-06-05] MEDS: 0.9% Normal Saline 1,000 ML 150 ML IV (19:21)
[2021-06-05 19:23] LABS: Color, Urine Yellow (Yellow); Glucose, Dipstick 1000 mg/dl (Normal); Ketone-Dipstick Negative (Negative); Leukocyte Esterase-Dipstick 25 /ul (Negative); Nitrite-Dipstick Negative (Negative); Occult Blood-Urine 25 /ul (Negative); Protein-Dipstick 15 mg/dl (Negative); Urine Bilirubin Dipstick Negative (Negative); Urine Clarity Sl. Cloudy (Clear); Urine Urobilinogen Normal (Normal)
[2021-06-05 19:27] VITALS: BP 131/76
[2021-06-05 19:42] LABS: Red Blood Cells-Urine 0-5 SEEN /hpf (0-5); Squamous Epithelial Cells - UA 0-5 SEEN /hpf (5-10); White Blood Cells 0-5 SEEN /hpf (0-5)
[2021-06-05 19:44] LABS: D-Dimer Quantitative (DVT/PE) 0.41 FEU/ug/m (0.27-0.49)
[2021-06-05] MEDS: Doxycycline 100 MG CAPSULE PO (21:44)
[2021-06-05 21:53] VITALS: BP 131/76; PULSE 79; RESP 18; O2SAT 99
== END 2021-06-05 21:55 | disposition home or self-care (01) ==
PROVIDERS: Emergency Provider Emergency Medicine; PCP Family Medicine
DX: J06.9 Acute upper respiratory infection, unspecified (principal); R00.2 Palpitations; R07.9 Chest pain, unspecified; I44.0 Atrioventricular block, first degree; F17.210 Nicotine dependence, cigarettes, uncomplicated; E11.9 Type 2 diabetes mellitus without complications; I10 Essential (primary) hypertension; E03.9 Hypothyroidism, unspecified; M32.9 Systemic lupus erythematosus, unspecified
CPT/HCPCS: 71045; 80048; 81001; 84484; 85025; 85379; 87426; 93005; 96360; 96361; 99285; J7030; A4216

== ENCOUNTER 2021-09-03 13:07 | Emergency (ER) | payer MEDICARE, MEDICAID, SELFPAY ==
[2021-09-03 13:08] VITALS: BP 153/103; PULSE 97; RESP 16; TEMP 35.8; O2SAT 96; BMI 48.2
--- NOTE | 2021-09-03 13:35 | RAD_ITS ---
STUDY: X-RAY CHEST REASON FOR EXAM: Female, 51 years old. COUGH TECHNIQUE: Single AP portable view of the chest. COMPARISON: 06/05/2021 FINDINGS: The lungs are clear and expanded. There is no demonstrated pleural abnormality. Normal size heart. Normal mediastinum and leonela. Normal visualized pulmonary arteries. Normal visualized aortic arch and descending thoracic aorta. There is a dextroscoliosis of the thoracic spine. Normal visualized ribs, clavicles, and shoulders. There is no demonstrated abnormality of the visualized soft tissue structures of the upper abdomen. RAD/Chest 1 View IMPRESSION: Normal x-ray examination of the chest. Electronically Signed: Fabien St MD at 14:01 EDT Tel , Service support ,
--- NOTE | 2021-09-03 14:21 | EKG12_ITS ---
Test Reason : SOB Blood Pressure : / mmHG Vent. Rate : 087 BPM Atrial Rate : 087 BPM P-R Int : 206 ms QRS Dur : 090 ms QT Int : 368 ms P-R-T Axes : 042 024 037 degrees QTc Int : 442 ms Normal sinus rhythm Normal ECG Confirmed by IVAN BUTTS MD ([id number]), newspaper photo editor TINY MONET ([id number]) on 09/09/2021 6:35:23 AM Referred By: ANN Confirmed By:IVAN BUTTS MD
--- NOTE | 2021-09-03 14:23 | EDS_ITS ---
HPI History of Present Illness Chief Complaint: Shortness of Breath Informant: patient Onset/Context/Timing Onset: Weeks Context: Gradual Onset Current Severity: Moderate Narrative Narrative: Patient presents secondary to generalized body aches and shortness of breath. Patient states she has chronic pain secondary to lupus. Over the past week or more she has noticed worsened pain. She denies fever or chills. She does report shortness of breath. She has an appointment to see her musculoskeletal physician later this month but was unable to move that appointment up. She states has been taking a lot of Tylenol to try to help control her pain. She is also on gabapentin. She also reports her blood sugars have been very irregular. [facility] Medical History (Updated 09/03/21 @ 16:[address] Nel Colon MD) Diabetes Hypertension Hypothyroidism Lupus Neuropathy Home Medications fenofibrate 134 mg PO DAILY 06/05/21 [History Last Taken Unknown] fluconazole [Diflucan] 150 mg PO DAILY #1 tab 06/05/21 [Rx Last Taken Unknown] insulin glargine [Basaglar KwikPen U-100 Insulin] 25 unit SUBCUT QHS 06/05/21 [History Last Taken Unknown] levothyroxine 200 mcg PO DAILY 06/05/21 [History Last Taken Unknown] lisinopril 10 mg PO DAILY 06/05/21 [History Last Taken Unknown] metformin 1,000 mg PO BID 06/05/21 [History Last Taken Unknown] omeprazole 40 mg PO DAILY 06/05/21 [History Last Taken Unknown] sitagliptin [Januvia] 50 mg PO DAILY 06/05/21 [History Last Taken Unknown] hydrocodone-acetaminophen 1 tab PO Q6H PRN 3 Days #10 tab 09/03/21 [Rx Last Taken Unknown] prednisone 60 mg PO DAILY #12 tab 09/03/21 [Rx Last Taken Unknown] Allergy/AdvReac Type Severity Reaction Status Date / Time codeine AdvReac Upset Verified 09/03/21 14:02 Stomach Social History Smoking Status: Current every day smoker tobacco type: cigarettes ROS ROS ED Constitutional Constitutional ED: Denies chills or fever(s) Eyes Eyes: Denies change in vision ENT ENT ED: Denies sore throat Cardiovascular Cardiovascular: Denies chest pain Respiratory/Chest Respiratory/Chest: Reports dyspnea; Denies cough Gastrointestinal Gastrointestinal: Denies abdominal pain, diarrhea, nausea or vomiting Genitourinary Genitourinary ED: Denies dysuria Musculoskeletal Musculoskeletal: Reports arthralgias, back pain and myalgias Integumentary Denies rash Neurologic Neurologic: Reports weakness; Denies headache(s) Psychiatric Psychiatric: Denies anxiety or depression Allergic/Immunologic Allergic/Immunologic ED: Denies urticaria EXAM Physical Exam Const Vital Signs: 09/03/21 13:08 09/03/21 13:59 09/03/21 15:14 Temperature 96.5 F L Temperature Source Temporal Pulse Rate 97 87 Respiratory Rate 16 18 Respiratory Effort Normal Respiratory Depth Normal Respiratory Pattern Normal Blood Pressure 153/103 H 118/79 Blood Pressure Mean 119 92 Pulse Ox 96 92 Oxygen Delivery Method Room Air Room Air Positive well nourished and well developed General Appearance ED: well developed Eyes PERRL and EOMs intact bilaterally Neck supple Chest Wall inspection of chest normal and palpation of chest normal Resp normal respiratory effort and clear to auscultation bilaterally Cardio regular rate and regular rhythm GI normal to inspection, nondistended, normoactive bowel sounds and non-tender Palpation: soft Extremity normal to inspection Extremity Narrative: No focal joint tenderness. No erythema or evidence of significant edema. Neuro oriented x3 Neuro Narrative: No focal neurologic deficits. Sensorium / Orientation: alert Psych mental status grossly normal Skin no rashes or lesions noted MDM MDM MDM Narrative Medical decision making narrative: Patient was given morphine and Zofran for pain. Patient placed on cardiac catheterization technician. EKG, chest x-ray, lab work ordered. Lab Data Attestation: I reviewed the patient's lab results. Labs: Laboratory Results - last 24 hr 09/03/21 09/03/21 09/03/21 14:45 14:45 14:45 WBC 11.3 H RBC 4.53 Hgb 13.3 Hct 38.2 MCV 84.3 MCH 29.4 MCHC 34.8 RDW Std Deviation 43.8 RDW Coeff of Yoandy 14.3 Plt Count 342 MPV 10.0 Immature Gran % (Auto) 1.700 H Neut % (Auto) 58.9 Lymph % (Auto) 30.0 [place] % (Auto) 6.3 Eos % (Auto) 2.5 Baso % (Auto) 0.6 Absolute Neuts (auto) 6.6 Absolute Lymphs (auto) 3.38 Nucleated RBC % 0 ESR 17 D-Dimer Quant (PE/DVT) 0.39 Sodium 134 L Potassium 3.9 Chloride 99 Carbon Dioxide 24.0 Anion Gap 11 BUN 14 Creatinine 0.87 Estim Creat Clear Calc 66.80 Est GFR (MDRD) Af Amer 88 Est GFR (MDRD) Non-Af 73 BUN/Creatinine Ratio 16.0 Glucose 260 H Calcium 8.9 Total Bilirubin 0.20 Direct Bilirubin 0.07 AST 27 ALT 44 Alkaline Phosphatase 67 Troponin I High Sens 5 C-React Prot Ext Range 6.21 H Total Protein 7.6 Albumin 3.7 Globulin 3.9 Acetaminophen 09/03/21 14:45 WBC RBC Hgb Hct MCV MCH MCHC RDW Std Deviation RDW Coeff of Yoandy Plt Count MPV Immature Gran % (Auto) Neut % (Auto) Lymph % (Auto) [place] % (Auto) Eos % (Auto) Baso % (Auto) Absolute Neuts (auto) Absolute Lymphs (auto) Nucleated RBC % ESR D-Dimer Quant (PE/DVT) Sodium Potassium Chloride Carbon Dioxide Anion Gap BUN Creatinine Estim Creat Clear Calc Est GFR (MDRD) Af Amer Est GFR (MDRD) Non-Af BUN/Creatinine Ratio Glucose Calcium Total Bilirubin Direct Bilirubin AST ALT Alkaline Phosphatase Troponin I High Sens C-React Prot Ext Range Total Protein Albumin Globulin Acetaminophen < 2.0 L Radiography Chest X-Ray - ED: 1 View, Read by ED Physician, Normal, Heart, Lungs and Mediastinum Diagnostic Testing: Clinical Impression(s) from Imaging Studies Chest X-Ray 09/03/21 13:35 IMPRESSION: Normal x-ray examination of the chest. Electronically Signed: Fabien St MD at 14:01 EDT Tel , Service support , EKG Initial EKG: Attestation: I personally reviewed and interpreted this EKG as follows: Interpretation: Sinus Rhythm (Sinus 87 with no acute ischemia.) Treatment and Re-Evaluation Comments:: Repeat evaluation patient resting comfortably. Test results discussed with her. Blood work unremarkable including negative D-dimer. Rapid Covid test is negative. PCR was sent. Sed rate and CRP slightly elevated. I discussed with the patient putting her on a steroid burst to help with inflammation as well as [place]. She was advised that this will cause her blood sugars to elevate. I encouraged her to call her endocrine office to see if they want to put her on a sliding scale during this. She does state that her blood sugars have been running high recently. Questions answered and patient given return instructions. Discharge Plan Triage Chief Complaint: Shortness of Breath ED Provider: Nel Colon Dx/Rx/DC Orders Clinical Impression: Myalgia Instructions: ED Systemic Lupus Erythematosis, ED Myalgias Prescriptions: New prednisone 20 mg tablet 60 mg PO DAILY Qty: 12 RF: 0 hydrocodone-acetaminophen 5-325 mg tablet 1 tab PO Q6H PRN (Reason: pain) 3 Days Qty: 10 RF: 0 No Action levothyroxine 200 mcg Capsule 200 mcg PO DAILY RF: 0 metformin 1,000 mg Tablet 1,000 mg PO BID RF: 0 Januvia 50 mg Tablet 50 mg PO DAILY RF: 0 lisinopril 10 mg Tablet 10 mg PO DAILY RF: 0 Basaglar KwikPen U-100 Insulin 100 unit/mL (3 mL) Insulin Pen 25 unit SUBCUT QHS RF: 0 fenofibrate 54 mg Tablet 134 mg PO DAILY RF: 0 omeprazole 40 mg Capsule,Delayed Release(Dr/Ec) 40 mg PO DAILY RF: 0 fluconazole [Diflucan] 150 mg tablet 150 mg PO DAILY Qty: 1 RF: 0 Primary Care Provider: Sajan Cantu Referrals: Sajan Cantu MD [Primary Care Provider] - 3-5 Days if not improving Disposition Disposition: Home, Self Care
[2021-09-03] MEDS: Morphine 4 MG/ML Syringe IV (14:51)
[2021-09-03] MEDS: Ondansetron 4 MG/2 ML Vial IV (14:51)
[2021-09-03 15:00] VITALS: O2SAT 96
[2021-09-03 15:14] VITALS: BP 118/79; PULSE 87; RESP 18; O2SAT 92
[2021-09-03 15:18] LABS: Erythrocyte Sedimentation Rate 17 mm/hr (0-30)
[2021-09-03 15:22] LABS: Absolute Lymphocyte Count 3.38 X10^3/uL (0.83-4.51); Absolute Neutrophil Count 6.6 X10^3/uL (2.0-7.7); Basophil# 0.07 X10^3/uL; Basophil% 0.6 % (0-1); Eosinophil# 0.28 X10^3/uL; Eosinophils% 2.5 % (0-5); Hematocrit 38.2 % (37-47); Hemoglobin 13.3 g/dL (12.0-15.0); Lymphocyte # 3.38 X10^3/ul (0.83-4.51); Mean Corp Hgb Conc 34.8 g/dL (32-36); Mean Corpuscular Hgb 29.4 pg (27.0-32.0); Mean Corpuscular Volume 84.3 fL (81-99); Monocyte# 0.71 X10^3/uL; Monocyte% 6.3 % (0-10); NRBC Flagged by Analyzer 0 % (0-5); Neutrophil # 6.62 X10^3/uL (2.7-7.7); Neutrophil % 58.9 % (47-70); Platelet Count 342 K/mm3 (150-450); RBC Distribution Width CV 14.3 % (11.6-14.6); RBC Distribution Width SD 43.8 fl (35.1-43.9); Red Blood Count 4.53 M/mm3 (4.2-5.4); White Blood Count 11.3 K/mm3 (4.4-11.0)
[2021-09-03 15:24] LABS: AST(SGOT) 27 U/L (15-37); Alanine Aminotransfer ALT/SGPT 44 U/L (13-56); Albumin, Serum 3.7 g/dL (3.2-5.0); Alkaline Phosphatase 67 U/L (45-117); Anion Gap 11 (5-15); BUN 14 mg/dL (7-18); Bilirubin, Direct 0.07 mg/dL (0.00-0.30); CRP 6.21 mg/L (0.0-3.0); Calcium,Total 8.9 mg/dL (8.5-10.1); Chloride 99 mmol/L (98-107); Creatinine, Serum 0.87 mg/dL (0.55-1.02); EST Glomerular Filtration Rate 73 mL/min (>60); Est Glom Filt Rate - Afr Amer 88 mL/min (>60); Globulin 3.9 g/dL (2.2-4.2); Glucose 260 mg/dL (74-106); Potassium 3.9 mmol/L (3.5-5.1); Protein, Total 7.6 g/dL (6.4-8.2); Sodium Level 134 mmol/L (136-145); Troponin-I HS 5 pg/mL (3.0-54.0)
[2021-09-03 15:39] LABS: Acetaminophen (Tylenol) Level < 2.0 ug/mL (10.0-30.0)
[2021-09-03 15:49] LABS: D-Dimer Quantitative (DVT/PE) 0.39 FEU/ug/m (0.27-0.49)
[2021-09-03 16:32] VITALS: BP 114/74; PULSE 79; RESP 18; TEMP 36.9; O2SAT 94
== END 2021-09-03 16:35 | disposition home or self-care (01) ==
PROVIDERS: Emergency Provider Emergency Medicine; PCP Family Medicine
DX: M79.10 Myalgia, unspecified site (principal); I10 Essential (primary) hypertension; E03.9 Hypothyroidism, unspecified; M32.9 Systemic lupus erythematosus, unspecified; E11.40 Type 2 diabetes mellitus with diabetic neuropathy, unspecified; F17.210 Nicotine dependence, cigarettes, uncomplicated
CPT/HCPCS: 71045; 80048; 80076; 80329; 84484; 85025; 85379; 85652; 86140; 87426; 87635; 93005; 96374; 96375; 99284; U0005; A4216; G0480; J2405; U0003

== ENCOUNTER 2021-09-13 10:11 | Emergency (ER) | payer MEDICARE, MEDICAID, SELFPAY ==
[2021-09-13 10:12] VITALS: BP 170/100; PULSE 85; RESP 17; TEMP 36.2; O2SAT 95; BMI 104.5
[2021-09-13 10:22] VITALS: RESP 16
--- NOTE | 2021-09-13 10:29 | RAD_ITS ---
STUDY: X-RAY CHEST REASON FOR EXAM: Female, 51 years old. Weakness TECHNIQUE: Single frontal view of the chest. COMPARISON: 09/03/2021 FINDINGS: The lungs are clear and expanded. There is no demonstrated pleural abnormality. Normal size heart. Normal mediastinum and leonela. Normal visualized pulmonary arteries. Normal visualized aortic arch and descending thoracic aorta. Normal visualized thoracic spine. Normal visualized ribs, clavicles, and shoulders. There is no demonstrated abnormality of the visualized soft tissue structures of the upper abdomen. RAD/Chest 1 View (Portable) IMPRESSION: Normal x-ray examination of the chest. Electronically Signed: Alcira Vázquez MD at 11:41 EDT Tel , Service support ,
--- NOTE | 2021-09-13 10:30 | EKG12_ITS ---
Test Reason : Blood Pressure : / mmHG Vent. Rate : 079 BPM Atrial Rate : 079 BPM P-R Int : 212 ms QRS Dur : 090 ms QT Int : 388 ms P-R-T Axes : 033 007 025 degrees QTc Int : 444 ms Sinus rhythm with 1st degree A-V block Otherwise normal ECG Confirmed by BECKIE RENAE, IVAN ([id number]), graphics editor TINY MONET ([id number]) on 09/16/2021 8:50:59 AM Referred By: LEONARDO Confirmed By:IVAN BUTTS MD
--- NOTE | 2021-09-13 10:30 | EX.ED.DYSGE1 ---
HPI History of Present Illness Chief Complaint: Weakness Informant: patient and family Narrative Narrative: 51-year-old female presents to the emergency department with a chief complaint of weakness. Patient states that she was recently seen in the emergency department for a flare of her lupus. She states that her whole body hurts and she has been experiencing numbness at the ends of her extremities and her limbs feel very heavy. She notes nausea for couple days. She states she was discharged from the emergency department on steroids and finished those last Wednesday. She has a appointment to see rheumatology on Wednesday. She is a diabetic with a history of hypertension as well as hypothyroidism. She denies any fevers. States that she is very fatigued with ambulation. She states she is having to walk on her heels because her toes hurt. When I asked what is different today as compared to couple days ago she states that her weakness is more her numbness is more in her upper back pain seems worse. She states that this does not feel like a lupus flare but that something is very wrong with her. PFSH FOR[facility]LY [facility] Medical History Diabetes Hypertension Hypothyroidism Lupus Neuropathy Home Medications fenofibrate 134 mg PO DAILY 06/05/21 [History Last Taken Unknown] insulin glargine [Basaglar KwikPen U-100 Insulin] 31 unit SUBCUT QHS 06/05/21 [History Last Taken Unknown] levothyroxine 200 mcg PO DAILY 06/05/21 [History Last Taken Unknown] lisinopril 10 mg PO DAILY 06/05/21 [History Last Taken Unknown] metformin 1,000 mg PO BID 06/05/21 [History Last Taken Unknown] omeprazole 40 mg PO DAILY 06/05/21 [History Last Taken Unknown] sitagliptin [Januvia] 50 mg PO DAILY 06/05/21 [History Last Taken Unknown] atorvastatin 80 mg PO DAILY 09/13/21 [History Last Taken Unknown] biotin 5,000 mcg SUBLINGUAL DAILY 09/13/21 [History Last Taken Unknown] dulaglutide [Trulicity] 0.75 mg SUBCUT QWEEK 09/13/21 [History Last Taken Unknown] hydrocodone-acetaminophen 1 tab PO Q6H PRN PRN 3 Days #12 tablet 09/13/21 [Rx Last Taken Unknown] levothyroxine 50 mcg PO DAILY #30 cap 09/13/21 [Rx Last Taken Unknown] pteppbej-shx-ejwp-FA-lutein [Multivitamin Women 50 Plus] 1 tab PO DAILY 09/13/21 [History Last Taken Unknown] Allergy/AdvReac Type Severity Reaction Status Date / Time codeine AdvReac Upset Verified 09/13/21 10:11 Stomach Surgical History Hx of cholecystectomy Social History (Updated 09/13/21 @ 10:[address] Son Nieves DO) current gender identity: female Smoking Status: Current every day smoker tobacco type: cigarettes ROS ROS ED ROS Narrative Global fatigue Constitutional Constitutional ED: Denies chills or weight loss Eyes Eyes: Denies change in vision or diplopia ENT ENT ED: Denies ear pain, rhinorrhea or sore throat Cardiovascular Cardiovascular: Denies chest pain, orthopnea, palpitations or racing heartbeat Respiratory/Chest Respiratory/Chest: Denies cough, dyspnea or orthopnea Gastrointestinal Gastrointestinal: Reports nausea; Denies abdominal pain, diarrhea or vomiting Genitourinary Genitourinary ED: Denies dysuria, hematuria or urinary frequency Musculoskeletal Musculoskeletal: Reports back pain and myalgias; Denies arthralgias Integumentary Denies abscess or rash Neurologic Neurologic: Reports paresthesias and weakness; Denies headache(s) Psychiatric Psychiatric: Denies anxiety, depression, suicidal ideation or suicidal thoughts Endocrine Endocrinology: Denies polydipsia, polyphagia or polyuria Allergic/Immunologic Allergic/Immunologic ED: Denies mouth swelling, tongue swelling or urticaria EXAM Physical Exam Const Vital Signs: 09/13/21 10:12 09/13/21 10:22 Temperature 97.1 F L Temperature Source Temporal Pulse Rate 85 Respiratory Rate 17 16 Respiratory Effort Non-Labored Short of Breath Respiratory Pattern Normal Blood Pressure 170/100 H Blood Pressure Mean 123 Pulse Ox 95 Oxygen Delivery Method Room Air Positive well nourished, well developed and obese General Appearance ED: well developed Nutritional Appearance: obese HEENT Reports normocephalic, head/scalp atraumatic, TM's clear and moist mucous membranes Negative for trauma Tympanic Membrane ED: Yes TM's clear Eyes PERRL and EOMs intact bilaterally Neck no lymphadenopathy, supple and no JVD Resp normal respiratory effort and clear to auscultation bilaterally Cardio regular rate, regular rhythm and no murmurs GI normal to inspection, nondistended, normoactive bowel sounds and non-tender Palpation: soft Back/Spine no CVA tenderness and normal ROM Extremity normal to inspection General Extremety ED: Negative for edema General Extremity: Negative for edema Neuro oriented x3 and CN's II-XII intact bilaterally Sensorium / Orientation: alert Motor Exam: strength 5/5 throughout Psych mental status grossly normal Mood & Affect: Negative for depressed or tearful Skin no rashes or lesions noted and no wounds MDM MDM MDM Narrative Medical decision making narrative: CBC CMP showed a glucose of 244. Sodium of 132. Lactic acid is negative. Her TSH is elevated at 6.05. A CPK was ordered which is slightly elevated at 249. Patient is already on 200 mcg levothyroxine a day. I discussed the case with her primary care physician. We can add in a 50 mcg pill to have her take 250 mcg/day. I can also write for some pain medication. Patient has follow-up on Wednesday with rheumatology and her PCP in about a week. Lab Data Attestation: I reviewed the patient's lab results. Labs: Laboratory Results - last 24 hr 09/13/21 09/13/21 09/13/21 10:40 10:40 10:40 WBC 10.8 RBC 4.83 Hgb 14.2 Hct 42.0 MCV 87.0 MCH 29.4 MCHC 33.8 RDW Std Deviation 44.9 H RDW Coeff of Yoandy 14.1 Plt Count 345 MPV 9.7 Immature Gran % (Auto) 2.000 H Neut % (Auto) 56.1 Lymph % (Auto) 32.6 [place] % (Auto) 6.7 Eos % (Auto) 1.9 Baso % (Auto) 0.7 Absolute Neuts (auto) 6.1 Absolute Lymphs (auto) 3.52 Nucleated RBC % 0 Sodium 132 L Potassium 4.0 Chloride 97 L Carbon Dioxide 26.0 Anion Gap 9 BUN 23 H Creatinine 0.96 Estim Creat Clear Calc 60.54 Est GFR (MDRD) Af Amer 79 Est GFR (MDRD) Non-Af 66 BUN/Creatinine Ratio 24.0 H Glucose 244 H Lactic Acid < 0.1 L Calcium 9.6 Total Bilirubin 0.30 AST 26 ALT 36 Alkaline Phosphatase 67 Total Creatine Kinase Troponin I High Sens 4 Total Protein 8.1 Albumin 3.9 Globulin 4.2 Albumin/Globulin Ratio 0.9 TSH 6.05 H Urine Color Urine Clarity Urine pH Ur Specific [place] Urine Protein Urine Glucose (UA) Urine Ketones Urine Occult Blood Urine Nitrite Urine Bilirubin Urine Urobilinogen Ur Leukocyte Esterase Urine RBC Urine WBC Ur Squamous Epith Cells Urine Bacteria Urine Mucus 09/13/21 09/13/21 10:40 11:09 WBC RBC Hgb Hct MCV MCH MCHC RDW Std Deviation RDW Coeff of Yoandy Plt Count MPV Immature Gran % (Auto) Neut % (Auto) Lymph % (Auto) [place] % (Auto) Eos % (Auto) Baso % (Auto) Absolute Neuts (auto) Absolute Lymphs (auto) Nucleated RBC % Sodium Potassium Chloride Carbon Dioxide Anion Gap BUN Creatinine Estim Creat Clear Calc Est GFR (MDRD) Af Amer Est GFR (MDRD) Non-Af BUN/Creatinine Ratio Glucose Lactic Acid Calcium Total Bilirubin AST ALT Alkaline Phosphatase Total Creatine Kinase 249 H Troponin I High Sens Total Protein Albumin Globulin Albumin/Globulin Ratio TSH Urine Color Yellow Urine Clarity Clear Urine pH 5.0 Ur Specific [place] 1.020 Urine Protein Negative Urine Glucose (UA) 1000 H Urine Ketones 5 H Urine Occult Blood Negative Urine Nitrite Negative Urine Bilirubin Negative Urine Urobilinogen Normal Ur Leukocyte Esterase Negative Urine RBC 0 SEEN Urine WBC 0 SEEN Ur Squamous Epith Cells 0-5 SEEN Urine Bacteria 1+ Urine Mucus 0 SEEN Radiography Diagnostic Testing: Clinical Impression(s) from Imaging Studies Chest X-Ray 09/13/21 10:29 IMPRESSION: Normal x-ray examination of the chest. Electronically Signed: Alcira Vázquez MD at 11:41 EDT Tel , Service support , EKG Initial EKG: Attestation: I personally reviewed and interpreted this EKG as follows: Comments: Sinus rhythm with a first-degree AV block with a ventricular rate of 79 bpm Discharge Plan Triage Chief Complaint: Weakness ED Provider: Son Nieves Dx/Rx/DC Orders Clinical Impression: Generalized weakness, Hypothyroidism, Whole body pain Instructions: ED Hypothyroidism Prescriptions: New hydrocodone-acetaminophen [hydrocodone-acetaminophen] 1 TABLET tablet 1 tab PO Q6H PRN PRN (Reason: Pain) 3 Days Qty: 12 RF: 0 levothyroxine 50 mcg capsule 50 mcg PO DAILY Qty: 30 RF: 0 No Action levothyroxine 200 mcg Capsule 200 mcg PO DAILY RF: 0 metformin 1,000 mg Tablet 1,000 mg PO BID RF: 0 Januvia 50 mg Tablet 50 mg PO DAILY RF: 0 lisinopril 10 mg Tablet 10 mg PO DAILY RF: 0 Basaglar KwikPen U-100 Insulin 100 unit/mL (3 mL) Insulin Pen 31 unit SUBCUT QHS RF: 0 fenofibrate 54 mg Tablet 134 mg PO DAILY RF: 0 omeprazole 40 mg Capsule,Delayed Release(Dr/Ec) 40 mg PO DAILY RF: 0 atorvastatin 80 mg tablet 80 mg PO DAILY RF: 0 Trulicity 0.75 mg/0.5 mL pen injector 0.75 mg SUBCUT QWEEK RF: 0 Multivitamin Women 50 Plus 8 mg iron-400 mcg-300 mcg Tablet 1 tab PO DAILY RF: 0 biotin 5,000 mcg Tablet, Sublingual 5,000 mcg SUBLINGUAL DAILY RF: 0 Primary Care Provider: Sajan Cantu Referrals: Sajan Cantu MD [Primary Care Provider] - Activity Restrictions/Additional Instructions: We are increasing your Synthroid (levothyroxine) to 250 mcg/day. Therefore I have sent a prescription to your pharmacy for a 50 mcg tablet to take with your 200 mcg tablet. Disposition Disposition: Home, Self Care
[2021-09-13 10:57] LABS: Absolute Lymphocyte Count 3.52 X10^3/uL (0.83-4.51); Absolute Neutrophil Count 6.1 X10^3/uL (2.0-7.7); Basophil# 0.08 X10^3/uL; Basophil% 0.7 % (0-1); Eosinophil# 0.21 X10^3/uL; Eosinophils% 1.9 % (0-5); Hemoglobin 14.2 g/dL (12.0-15.0); Lymphocyte # 3.52 X10^3/ul (0.83-4.51); Lymphocyte % 32.6 % (19-41); Mean Corp Hgb Conc 33.8 g/dL (32-36); Mean Corpuscular Hgb 29.4 pg (27.0-32.0); Mean Platelet Vol. 9.7 fl (6.2-12.0); Monocyte# 0.72 X10^3/uL; Monocyte% 6.7 % (0-10); NRBC Flagged by Analyzer 0 % (0-5); Neutrophil # 6.05 X10^3/uL (2.7-7.7); Neutrophil % 56.1 % (47-70); Platelet Count 345 K/mm3 (150-450); RBC Distribution Width CV 14.1 % (11.6-14.6); RBC Distribution Width SD 44.9 fl (35.1-43.9); Red Blood Count 4.83 M/mm3 (4.2-5.4); White Blood Count 10.8 K/mm3 (4.4-11.0)
[2021-09-13] MEDS: Ketorolac 30 MG/ML Syringe IV (11:07)
[2021-09-13 11:18] LABS: Mucous, Urine 0 SEEN /hpf (<or=2+); Red Blood Cells-Urine 0 SEEN /hpf (0-5); White Blood Cells 0 SEEN /hpf (0-5)
[2021-09-13 11:31] LABS: Color, Urine Yellow (Yellow); Glucose, Dipstick 1000 mg/dl (Normal); Ketone-Dipstick 5 mg/dl (Negative); Leukocyte Esterase-Dipstick Negative /ul (Negative); Nitrite-Dipstick Negative (Negative); Occult Blood-Urine Negative /ul (Negative); Protein-Dipstick Negative (Negative); Urine Bilirubin Dipstick Negative (Negative); Urine Clarity Clear (Clear); Urine Urobilinogen Normal (Normal)
[2021-09-13 11:31] LABS: ALB/GLOB Ratio 0.9 RATIO (0.9-2.4); AST(SGOT) 26 U/L (15-37); Alanine Aminotransfer ALT/SGPT 36 U/L (13-56); Albumin, Serum 3.9 g/dL (3.2-5.0); Alkaline Phosphatase 67 U/L (45-117); Anion Gap 9 (5-15); BUN 23 mg/dL (7-18); Calcium,Total 9.6 mg/dL (8.5-10.1); Chloride 97 mmol/L (98-107); Creatinine, Serum 0.96 mg/dL (0.55-1.02); EST Glomerular Filtration Rate 66 mL/min (>60); Est Glom Filt Rate - Afr Amer 79 mL/min (>60); Estimated Creatinine Clearance 60.54 ml/min; Globulin 4.2 g/dL (2.2-4.2); Glucose 244 mg/dL (74-106); Protein, Total 8.1 g/dL (6.4-8.2); Sodium Level 132 mmol/L (136-145); Thyroid Stim Hormone (TSH) 6.05 uIU/mL (0.358-3.74); Troponin-I HS 4 pg/mL (3.0-54.0)
[2021-09-13 12:04] LABS: Lactic Acid < 0.1 mmol/L (0.4-1.9)
[2021-09-13 12:07] LABS: CPK Total, Creatine Kinase 249 U/L (26-192)
[2021-09-13 12:07] LABS: Squamous Epithelial Cells - UA 0-5 SEEN /hpf (5-10)
[2021-09-13 12:08] LABS: Bacteria 1+ /hpf (None Seen)
[2021-09-13 12:41] VITALS: BP 109/72; PULSE 75; RESP 16; O2SAT 98
--- NOTE | 2021-09-13 12:42 | ED.RN ---
REVIEWED D/C INSTRUCTIONS, FOLLOW UP CARE, PRESCRIPTION, AND S/S THAT WOULD WARRANT A RETURN TO THE ED WITH PT. PT VERBALIZED AN UNDERSTANDING AND DENIES FURTHER QUESTIONS FOR THIS RN. PT SKIN WARM/DRY, RESP EVEN AND UNLABORED, PT A&O X 3, NO DISTRESS NOTED. PT AMBULATED OUT OF ED, GAIT STEADY.
== END 2021-09-13 12:43 | disposition home or self-care (01) ==
PROVIDERS: Emergency Provider Emergency Medicine; PCP Family Medicine
DX: R53.1 Weakness (principal); E03.9 Hypothyroidism, unspecified; F17.210 Nicotine dependence, cigarettes, uncomplicated; E66.9 Obesity, unspecified; E11.40 Type 2 diabetes mellitus with diabetic neuropathy, unspecified; I10 Essential (primary) hypertension; Z79.4 Long term (current) use of insulin; Z79.899 Other long term (current) drug therapy
CPT/HCPCS: 71045; 80053; 81001; 82550; 83605; 84443; 84484; 85025; 93005; 96374; 99284; A4216

== ENCOUNTER 2021-10-05 15:00 | Observation (INO) | payer MEDICARE, MEDICAID, SELFPAY ==
[2021-10-05 15:01] VITALS: BP 173/88; PULSE 99; RESP 18; TEMP 36.4; O2SAT 98; BMI 46.5
--- NOTE | 2021-10-05 15:07 | EKG12_ITS ---
Test Reason : CP Blood Pressure : / mmHG Vent. Rate : 097 BPM Atrial Rate : 097 BPM P-R Int : 200 ms QRS Dur : 080 ms QT Int : 356 ms P-R-T Axes : 035 022 031 degrees QTc Int : 452 ms Normal sinus rhythm Septal infarct , age undetermined Abnormal ECG Confirmed by ANA JUNG ([id number]), advertising editor TINY MONET ([id number]) on 10/06/2021 11:09:02 AM Referred By: DOUGLAS Confirmed By:ANA JUNG
[2021-10-05 15:14] VITALS: BP 168/93; PULSE 98; RESP 17; O2SAT 97; O2SAT 98
--- NOTE | 2021-10-05 15:15 | RAD_ITS ---
STUDY: X-RAY CHEST REASON FOR EXAM: Female, 51 years old. chest pain TECHNIQUE: 1 view COMPARISON: 09/13/2021 FINDINGS: Cardiomediastinal silhouette is unremarkable. Costophrenic angles are sharp. Lungs are clear. The trachea is midline. There is no pneumothorax. Mild dextroscoliosis of the thoracic spine is noted. RAD/Chest 1 View (Portable) IMPRESSION: No acute cardiopulmonary process. Electronically Signed: Richmond Hubbard MD at 15:54 EST Tel , Service support ,
--- NOTE | 2021-10-05 15:16 | ED.VIS.CHEST ---
HPI History of Present Illness Chief Complaint: Chest Pain Informant: patient Onset/Context/Timing Onset: Days Activity at onset: gradual Timing: Intermittent Quality: Positive for Sharp Location: Right Chest and Left Chest Current Severity: Gone Maximum Severity: Mild Worsened By: Nothing Relieved By: Nothing Associated Symptoms: Negative for Nausea, Vomiting, Diaphoresis, Dyspnea, Cough, Fever, Lightheadedness, Acid Reflux and Palpitations Narrative Narrative: 51-year-old female history of hypertension, diabetes and hypothyroidism. States she is never had a stress test nor cardiac catheterization. She is never had a DVT or PE. States of the last week she has had intermittent chest pain. has had similar episodes like this before. The not specifically associated with exertion. States is like a sharp pain across her chest to come in different areas. Not necessarily associated with nausea or diaphoresis. She denies any leg pain or swelling. No recent travel, surgery or hospitalization. Denies any hemoptysis. Prior Similar Symptoms: Yes Recent Illness/Hospitalization: No CVD Risk Factors: Positive for Hypertension, Diabetes and Smoking; Negative for Family History 1' </=55 PE Risk Factors: Negative for Recent Travel/Surgery, Recent Immobilization, Prior DVT or PE, Cancer and OCP + Smoking + >/=35 TAD Risk Factors: Positive for Hypertension; Negative for Marfan's Syndrome [facility] Medical History Diabetes Hypertension Hypothyroidism Lupus Neuropathy Home Medications fenofibrate 134 mg PO DAILY 06/05/21 [History Last Taken Unknown] insulin glargine [Basaglar KwikPen U-100 Insulin] 34 unit SUBCUT QHS 06/05/21 [History Last Taken Unknown] levothyroxine 200 mcg PO DAILY 06/05/21 [History Last Taken Unknown] lisinopril 10 mg PO DAILY 06/05/21 [History Last Taken Unknown] metformin 1,000 mg PO BID 06/05/21 [History Last Taken Unknown] omeprazole 40 mg PO DAILY 06/05/21 [History Last Taken Unknown] atorvastatin 80 mg PO DAILY 09/13/21 [History Last Taken Unknown] biotin 5,000 mcg SUBLINGUAL DAILY 09/13/21 [History Last Taken Unknown] dulaglutide [Trulicity] 0.75 mg SUBCUT QWEEK 09/13/21 [History Last Taken Unknown] levothyroxine 50 mcg PO DAILY #30 tab 09/13/21 [Rx Last Taken Unknown] vfmighrk-yxj-beim-FA-lutein [Multivitamin Women 50 Plus] 1 tab PO DAILY 09/13/21 [History Last Taken Unknown] Allergy/AdvReac Type Severity Reaction Status Date / Time codeine AdvReac Upset Verified 10/05/21 15:03 Stomach Surgical History Hx of cholecystectomy Social History Smoking Status: Current every day smoker tobacco type: cigarettes ROS ROS ED ROS Narrative Denies recent illness Review of Systems ROS Unobtainable: Denies due to encephalopathy Constitutional Constitutional ED: Denies fever(s) Eyes Eyes: Denies none ENT ENT ED: Denies ear pain Cardiovascular Cardiovascular: Reports as per HPI and chest pain; Denies palpitations Respiratory/Chest Respiratory/Chest: Denies cough or dyspnea Gastrointestinal Gastrointestinal: Denies abdominal pain, nausea or vomiting Genitourinary Genitourinary ED: Denies dysuria Musculoskeletal Musculoskeletal: Denies myalgias Integumentary Denies rash Neurologic Neurologic: Denies headache(s) Psychiatric Psychiatric: Denies depression Endocrine Endocrinology: Denies polyuria Hematologic/Lymphatic Hematologic/Lymphatic: Denies easy bruising Allergic/Immunologic Allergic/Immunologic ED: Denies urticaria EXAM Physical Exam Narrative Exam Narrative: Middle-aged female no acute distress vital signs stable afebrile pulse ox 90% on room air no signs hypoxia. HEENT exam unremarkable. Neck nontender no JVD. Lungs clear to auscultation bilaterally. Heart regular rhythm no murmur. Abdomen soft nontender normal bowel sounds no peritoneal signs. Extremities moves all 4. Calves nontender no edema or cords. Neurologically she is awake and alert. Const Vital Signs: 10/05/21 15:01 10/05/21 15:14 10/05/21 15:22 Temperature 97.6 F L Temperature Source Temporal Pulse Rate 99 98 Respiratory Rate 18 17 Respiratory Effort Normal Blood Pressure 173/88 H 168/93 H Blood Pressure Mean 116 118 Pulse Ox 98 97 Oxygen Delivery Method Room Air Room Air 10/05/21 17:12 Temperature Temperature Source Pulse Rate 87 Respiratory Rate 16 Respiratory Effort Blood Pressure 125/73 H Blood Pressure Mean 90 Pulse Ox 94 Oxygen Delivery Method Room Air Positive well nourished, well developed and obese; Negative for cachectic, contractures or unkempt General Appearance ED: well developed and NAD; Negative for unkempt, cachectic, contractures or pallor Nutritional Appearance: obese; Negative for cachectic HEENT Reports moist mucous membranes normocephalic and atraumatic; Negative for trauma or tenderness Eyes PERRL and EOMs intact bilaterally Neck no lymphadenopathy, supple and no JVD General: Negative for tenderness Chest Wall inspection of chest normal and palpation of chest normal Resp normal respiratory effort and clear to auscultation bilaterally Effort and Inspection: respiratory distress Auscultation: Negative for rales, rhonchi or wheezes Cardio regular rate, regular rhythm, S1 normal heart sound, S2 normal heart sound and no murmurs Rate: Negative for tachycardic GI normal to inspection, nondistended, normoactive bowel sounds, soft to palpation, non-tender, non-distended and no masses Auscultation: Negative for hyperactive bowel sounds Back/Spine no CVA tenderness Extremity normal to inspection General Extremety ED: Negative for edema or tenderness General Extremity: Negative for edema Neuro oriented x3 and CN's II-XII intact bilaterally Sensorium / Orientation: awake, alert, oriented to person, oriented to place and oriented to time Motor Exam: strength 5/5 throughout; Negative for strength abnormal Psych mental status grossly normal Appearance: Negative for unkempt Mood & Affect: anxious; Negative for depressed or tearful Skin no rashes or lesions noted and no wounds General Skin Exam: Negative for jaundice or pallor Heart Score History: Slightly/Non-Suspicious ECG: Normal Age: >45 - <65 years Risk Factors: >/= 3 Risk Factors or History of CAD Troponin: </= Normal Limit Score: 3 MDM MDM MDM Narrative Medical decision making narrative: 51-year-old female complaint of atypical nonreproducible chest pain. She does have cardiac risk factors including obesity, hypertension, smoker and diabetes. No significant family history. Exam benign. She undergo cardiac work-up. She has no recent travel surgery or immobilization and no history of DVT or PE. Repeat exam at 5 PM patient doing well. Currently not having any chest pain. She and I talked she states if she tries to walk up steps more than a single flight she gets short of breath has to stop at times she will get chest pain same day if she walks any significant distance or tries to walk up a hill. Even with a negative cardiac work-up given her age of 51, her diabetes hypertension and smoking history and she has chest pain of unspecific etiology at this time I think she warrants admission for further cardiac testing and possible stress testing. Lab Data Attestation: I reviewed the patient's lab results. Lab results narrative: CBC normal white count 9. Hemoglobin 14. Electrolytes sodium 131 gap 11 normal BUN and creatinine. Troponin 7. Glucose is elevated at 327 she is diabetic. Labs: Laboratory Results - last 24 hr 10/05/21 10/05/21 15:16 15:16 WBC 9.4 RBC 4.55 Hgb 14.6 Hct 39.2 MCV 86.2 MCH 32.1 H MCHC 37.2 H RDW Std Deviation 42.2 RDW Coeff of Yoandy 13.5 Plt Count 394 MPV 10.3 Immature Gran % (Auto) 1.100 H Neut % (Auto) 52.4 Lymph % (Auto) 37.4 [place] % (Auto) 6.2 Eos % (Auto) 2.2 Baso % (Auto) 0.7 Absolute Neuts (auto) 4.9 Absolute Lymphs (auto) 3.50 Nucleated RBC % 0 Sodium 131 L Potassium 4.0 Chloride 99 Carbon Dioxide 21.0 Anion Gap 11 BUN 16 Creatinine 0.95 Estim Creat Clear Calc 61.18 Est GFR (MDRD) Af Amer 80 Est GFR (MDRD) Non-Af 66 BUN/Creatinine Ratio 16.9 Glucose 327 H Calcium 9.1 Troponin I High Sens 7 Radiography Chest X-Ray - ED: 1 View, Read by ED Physician, Read by Radiologist, Heart, Lungs, Mediastinum, Bony Structures, No Acute Disease and Chronic Changes Diagnostic Testing: Clinical Impression(s) from Imaging Studies Chest X-Ray 10/05/21 15:15 IMPRESSION: No acute cardiopulmonary process. Electronically Signed: Richmond Hubbard MD at 15:54 EST Tel , Service support , Portable chest x-ray 1 view interpreted by myself the radiologist shows no acute abnormality. Rhythm Strip Rhythm Strip: Sinus Rhythm Rate: 97 Ectopy: None EKG Initial EKG: Attestation: I personally reviewed and interpreted this EKG as follows: Interpretation: Sinus Rhythm and No Acute Injury Pattern Comments: Normal sinus rhythm rate of 97 no acute signs of NC or ischemia. Unchanged from prior EKG from August this year. Prior EKG tracings: available for review Prior: Unchanged Discharge Plan Dx/Rx/DC Orders Clinical Impression: Chest pain of uncertain etiology, Diabetes, Hypertension, Obesity, Tobacco use Disposition Disposition: Acute Care Hospital [facility]
[2021-10-05] MEDS: Aspirin 81 MG TAB.CHEW 324 MG PO (15:20)
[2021-10-05 15:21] LABS: Absolute Neutrophil Count 4.9 X10^3/uL (2.0-7.7); Basophil# 0.07 X10^3/uL; Basophil% 0.7 % (0-1); Eosinophil# 0.21 X10^3/uL; Eosinophils% 2.2 % (0-5); Hematocrit 39.2 % (37-47); Hemoglobin 14.6 g/dL (12.0-15.0); Lymphocyte % 37.4 % (19-41); Mean Corp Hgb Conc 37.2 g/dL (32-36); Mean Corpuscular Hgb 32.1 pg (27.0-32.0); Mean Corpuscular Volume 86.2 fL (81-99); Mean Platelet Vol. 10.3 fl (6.2-12.0); Monocyte# 0.58 X10^3/uL; Monocyte% 6.2 % (0-10); NRBC Flagged by Analyzer 0 % (0-5); Neutrophil # 4.89 X10^3/uL (2.7-7.7); Neutrophil % 52.4 % (47-70); Platelet Count 394 K/mm3 (150-450); RBC Distribution Width CV 13.5 % (11.6-14.6); RBC Distribution Width SD 42.2 fl (35.1-43.9); Red Blood Count 4.55 M/mm3 (4.2-5.4); White Blood Count 9.4 K/mm3 (4.4-11.0)
[2021-10-05 16:20] LABS: Anion Gap 11 (5-15); BUN 16 mg/dL (7-18); BUN/Creat Ratio 16.9 RATIO (10-20); Calcium,Total 9.1 mg/dL (8.5-10.1); Chloride 99 mmol/L (98-107); Creatinine, Serum 0.95 mg/dL (0.55-1.02); EST Glomerular Filtration Rate 66 mL/min (>60); Est Glom Filt Rate - Afr Amer 80 mL/min (>60); Estimated Creatinine Clearance 61.18 ml/min; Glucose 327 mg/dL (74-106); Sodium Level 131 mmol/L (136-145); Troponin-I HS 7 pg/mL (3.0-54.0)
[2021-10-05 17:12] VITALS: BP 125/73; PULSE 87; RESP 16; O2SAT 94
[2021-10-05] MEDS: Ibuprofen 600 MG Tablet PO (18:14)
--- NOTE | 2021-10-05 19:41 | PCM.HP.STD ---
HPI - General General Date of Admission: 10/05/21 Date of Service: 10/05/21 Chief Complaint: Chest pain HPI Narrative CHUY NGUYEN, is a 51 F with a significant history of hypertension; diabetes mellitus; hypothyroidism; tobacco abuse who presents to the emergency department with chest pain. Reportedly she been having intermittent chest pain for about a month and a half. However on the day of presentation her chest pain worsened. She described her chest as dull. Her chest pain is substernal and radiates to her back. Severity is 8 out of 10. Her chest pain increases with movement and walking. The chest radiated to her back. Associated with her symptoms is nausea and diaphoresis. Further she complains of multiple symptoms of lightheadedness; vertigo; generalized body pain and abdominal swelling. She has shortness of breath with minimal exertion. [facility] Medical History Chest pain Diabetes Hypertension Hypothyroidism Lupus Neuropathy Home Medications fenofibrate 134 mg PO DAILY 06/05/21 [History Last Taken Unknown] insulin glargine [Basaglar KwikPen U-100 Insulin] 34 unit SUBCUT QHS 06/05/21 [History Last Taken Unknown] levothyroxine 200 mcg PO DAILY 06/05/21 [History Last Taken Unknown] lisinopril 10 mg PO DAILY 06/05/21 [History Last Taken Unknown] metformin 1,000 mg PO BID 06/05/21 [History Last Taken Unknown] omeprazole 40 mg PO DAILY 06/05/21 [History Last Taken Unknown] atorvastatin 80 mg PO DAILY 09/13/21 [History Last Taken Unknown] biotin 5,000 mcg SUBLINGUAL DAILY 09/13/21 [History Last Taken Unknown] dulaglutide [Trulicity] 0.75 mg SUBCUT QWEEK 09/13/21 [History Last Taken Unknown] levothyroxine 50 mcg PO DAILY #30 tab 09/13/21 [Rx Last Taken Unknown] [id number]-pozo-FA-lutein [Multivitamin Women 50 Plus] 1 tab PO DAILY 09/13/21 [History Last Taken Unknown] gabapentin 300 mg PO TID 10/05/21 [History Last Taken 10/05/21 09:00] Allergy/AdvReac Type Severity Reaction Status Date / Time codeine AdvReac Upset Verified 10/05/21 15:03 Stomach Family History Other Cancer Heart disease Thyroid disorder Surgical History H/O tubal ligation History of tonsillectomy Hx of cholecystectomy Social History Smoking Status: Current every day smoker tobacco type: cigarettes ROS ROS Narrative Constitutional: Reports fatigue. Denies fever, chills, anorexia and change in weight Eyes: Denies blurry vision, change in eye color, change in vision, discharge from eye(s), double vision, erythema, eye pain, loss of vision or other HEENT: Denies abnormal hearing, dysphagia, ear pain, epistaxis, hearing loss, nasal congestion, nasal discharge, post nasal drip, sinus pressure, sore throat or other Cardiovascular: Reports chest pain. Reports dyspnea on exertion. Denies palpitations. Respiratory/Chest: Denies cough, excessive phlegm production, shortness of breath with exertion and wheezing Gastrointestinal: Denies abdominal pain, coffee ground emesis, constipation, diarrhea, dyspepsia, hematemesis, hematochezia, loose stools, melena, nausea, vomiting or other Genitourinary: Denies burning urination, difficulty urinating, dysuria, hematuria, nocturia, urinary frequency, urinary hesitancy, urinary incontinence, urinary urgency or other Musculoskeletal: Reports myalgia. Denies joint swelling. Neurologic: Reports headache denies. Abnormal gait, abnormal speech, confusion, disequilibrium, dizziness, focal weakness, headache(s), numbness, paresthesias, seizure-like activity, seizures, syncope, tingling, tremor(s) or other Psychiatric: Denies anxiety, depression, homicidal ideation, suicidal ideation or other Endocrinology: Denies change in body appearance, cold intolerance, excessive sweating, heat intolerance, polydipsia, polyuria or other Hematologic/Lymphatic: Denies anemia, easy bleeding, easy bruising, lymphadenopathy or other Integumentary: Denies rashes Allergic/Immunologic: Denies rhinitis, hives, eczema, asthma or other Vital Signs Vital Signs Vital Signs: 10/05/21 15:01 10/05/21 15:14 10/05/21 15:22 Temperature 97.6 F L Temperature Source Temporal Pulse Rate 99 98 Respiratory Rate 18 17 Respiratory Effort Normal Blood Pressure 173/88 H 168/93 H Blood Pressure Mean 116 118 Pulse Ox 98 97 Oxygen Delivery Method Room Air Room Air 10/05/21 17:12 Temperature Temperature Source Pulse Rate 87 Respiratory Rate 16 Respiratory Effort Blood Pressure 125/73 H Blood Pressure Mean 90 Pulse Ox 94 Oxygen Delivery Method Room Air Weight Weight: 123 kg Body Mass Index (BMI) 46.5 Physical Exam Narrative Physical exam: General: Well-nourished, well-developed. Head: Normocephalic, atraumatic, no tenderness Eyes: PERRLA, EOMI ENT, no trauma, moist mucous membranes, no rhinorrhea Neck: Nontender, full range of motion, no spinal tenderness, deformities, step-off CVS: Regular rate and rhythm. S1-S2 present. No murmur, gallop or rub. Respiratory : clear to auscultation bilaterally, chest wall nontender, no wheezing Abdomen: Soft, nontender, nondistended, normal bowel sounds, no masses : Deferred Back: Nontender, no CVA tenderness, no midline spinal tenderness, deformities, step-offs Extremities: Nontender full range of motion, no trauma Skin: Normal color, no trauma, abrasions Neuro: Alert, oriented, cranial nerves II through XII grossly intact. Psychiatry: Normal mood. Normal affect. Not depressed. Not anxious. Results Lab / Micro Data Result Diagrams: 10/05/21 15:16 10/05/21 15:16 Labs: Laboratory Results - last 24 hr 10/05/21 15:16: WBC 9.4, RBC 4.55, Hgb 14.6, Hct 39.2, MCV 86.2, MCH 32.1 H, MCHC 37.2 H, RDW Std Deviation 42.2, RDW Coeff of Yoandy 13.5, Plt Count 394, MPV 10.3, Immature Gran % (Auto) 1.100 H, Neut % (Auto) 52.4, Lymph % (Auto) 37.4, [place] % (Auto) 6.2, Eos % (Auto) 2.2, Baso % (Auto) 0.7, Absolute Neuts (auto) 4.9, Absolute Lymphs (auto) 3.50, Nucleated RBC % 0 10/05/21 15:16: Sodium 131 L, Potassium 4.0, Chloride 99, Carbon Dioxide 21.0, Anion Gap 11, BUN 16, Creatinine 0.95, Estim Creat Clear Calc 61.18, Est GFR (MDRD) Af Amer 80, Est GFR (MDRD) Non-Af 66, BUN/Creatinine Ratio 16.9, Glucose 327 H, Calcium 9.1, Troponin I High Sens 7 Rhythm Strip Rhythm Strip: Sinus Rhythm Rate: 97 Ectopy: None Radiology Impression Chest X-Ray 10/05/21 15:15 IMPRESSION: No acute cardiopulmonary process. Electronically Signed: Richmond Hubbard MD at 15:54 EST Tel , Service support , Assessment & Plan Assessment/Plan (1) Chest pain of uncertain etiology: PLAN: Chest pain of uncertain etiology/dyspnea Place on a monitored bed at progressive care unit Actual CXR image was independently visualized. No acute cardiopulmonary process was noted. I agree radiologist interpretation. Actual EKG tracing was independently visualized. EKG tracing showed sinus rhythm with Q waves in V1 and V2. Received full dose aspirin at emergency department. ASA 81 mg p.o. daily ordered SL NTG 0.4 mg prn as needed for chest pain ordered Morphine as needed for pain ordered We will check lipid panel. Statin: Continue home high intensity statin. Initial high since he troponin was negative. Serial cardiac enzymes ordered Stat EKG as needed for chest pain Chemical stress test in the AM if the cardiac enzymes are negative. Patient reports inability to walk on treadmill Diabetes mellitus with polyneuropathy Patient with hyperglycemia on presentation On [facility]. Basal insulin continued. Accu-Chek correction scale insulin ordered. Hold home Metformin. Gabapentin continued. Hypertension Blood pressure is not within goal Home blood pressure medication continued. Trend blood pressure and adjust blood pressure medications. Hypothyroidism Review of record showed that last TSH was checked on 09/13/2021. TSH at time was 6.05. Synthroid continued. DVT prophylaxis SCD ordered Charges/Coding Visit Charges OBSV E&M: 22379 Initial observation care L3
[2021-10-05 19:52] VITALS: BP 124/81; PULSE 82; RESP 15; RESP 16; TEMP 37.1; O2SAT 98
[2021-10-05 20:27] LABS: Troponin-I HS 6 pg/mL (3.0-54.0)
[2021-10-05 21:14] VITALS: BMI 47.2
[2021-10-05 21:15] VITALS: BP 127/96; PULSE 78; RESP 18; TEMP 36.4; O2SAT 93
[2021-10-05 21:17] VITALS: PULSE 77
--- NOTE | 2021-10-05 21:22 | ECHOCS_ITS ---
Reason For Study: SOB Procedure This was a 2D Doppler, Color Flow transthoracic echocardiogram. The study was technically difficult. Contrast injection was performed. Exam performed in department. Left Ventricle Normal LV size. Left ventricular systolic function is normal. The estimated ejection fraction is 60 %. Stage 1 diastolic dysfunction. No regional wall motion abnormalities noted. Right Ventricle Normal RV size. Normal systolic function. Atria Normal left atrium. Normal right atrium. Mitral Valve Normal mitral valve. Tricuspid Valve Normal tricuspid valve. Aortic Valve Normal aortic valve. Trisinus/trileaflet aortic valve. Mild (1+) aortic valve insufficiency. Pulmonic Valve The pulmonic valve is not well visualized. Great Vessels Normal aortic root. The pulmonary artery is normal size. Normal inferior vena cava. Pericardium/Pleural No pericardial effusion. Medication Diluted definity 2ml given slow IV push to enhance endocardial definition. MMode/2D Measurements & Calculations LVIDd: 5.1 cm IVSd: 1.1 cm LA dimension: 3.9 cm LVIDs: 3.1 cm LVPWd: 1.0 cm FS: 39.0 % LAV(MOD-bp): 49.9 ml LA A4 area: 16.4 cm2 RA A4 area: 14.4 cm2 LAV(MOD-bp) Indexed: 22.4 ml/m2 LAV(MOD-sp2): 49.5 ml LAV(MOD-sp4): 44.6 ml Time Measurements MV dec time: 0.35 sec Doppler Measurements & Calculations MV E max kevin: 60.8 cm/sec Lat Peak E' Kevin: 7.2 cm/sec Med Peak E' Kevin: 5.7 cm/sec MV A max kevin: 77.4 cm/sec E/E' lat: 8.4 E/E' med: 10.6 MV E/A: 0.79 MV V2 max: 87.6 cm/sec MV P1/2t max kevin: 76.8 cm/sec Ao V2 max: 148.1 cm/sec MV max P.1 mmHg MV P1/2t: 74.1 msec Ao max P.8 mmHg MV V2 mean: 54.4 cm/sec MV dec slope: 303.7 cm/sec2 MV mean P.4 mmHg MV V2 VTI: 25.1 cm MVA(P1/2t): 3.0 cm2 AI max kevin: 405.7 cm/sec LV V1 max: 126.1 cm/sec PA V2 max: 109.8 cm/sec AI max P.8 mmHg LV V1 max P.4 mmHg AI dec slope: 162.3 cm/sec2 AI P1/2t: 732.2 msec ECHO/Echo Complete W/ Contrast Interpretation Summary Normal LV size. Left ventricular systolic function is normal. The estimated ejection fraction is 60 %. Stage 1 diastolic dysfunction. Contrast injection was performed. Ordering Physician: Joey Olsen Referring Physician: MD Pepe Sajan Performed By: Stephen Reyes RCS
--- NOTE | 2021-10-05 21:22 | EKG12_ITS ---
Test Reason : CP ADMISSION Blood Pressure : / mmHG Vent. Rate : 076 BPM Atrial Rate : 076 BPM P-R Int : 208 ms QRS Dur : 084 ms QT Int : 408 ms P-R-T Axes : 039 017 034 degrees QTc Int : 459 ms Normal sinus rhythm Normal ECG When compared with ECG of 05-OCT-2021 15:18, MANUAL COMPARISON REQUIRED, DATA IS UNCONFIRMED Confirmed by BECKIE RENAE, IVAN ([id number]), food expeditor TINY MONET ([id number]) on 10/07/2021 11:22:38 AM Referred By: ROSEMARIE Confirmed By:IVAN BUTTS MD
[2021-10-05] MEDS: Acetaminophen 325 MG Tablet 650 MG PO (21:49)
[2021-10-05 22:06] LABS: Bedside Glucose 200 mg/dL (70-110)
[2021-10-05 22:54] LABS: Troponin-I HS 6 pg/mL (3.0-54.0)
[2021-10-06] VITALS (8 sets, daily range): BP systolic 108–132; BP diastolic 72–84; PULSE 73–82; RESP 16–18; TEMP 36.3–36.9; O2SAT 93–96
[2021-10-06] MEDS: Insulin Lispro 100 UNIT/ML INSULN.PEN SC (00:11)
[2021-10-06 00:20] LABS: Bedside Glucose 285 mg/dL (70-110)
[2021-10-06] MEDS: Gabapentin 300 MG Capsule PO ×2 (01:03→12:46)
[2021-10-06] MEDS: Acetaminophen 325 MG Tablet 650 MG PO ×2 (03:58→13:04)
--- NOTE | 2021-10-06 04:18 | PCS.PANDOC ---
PANDEMIC DOCUMENTATION INITIATED: Date: 07/07/2021 Time: 190
--- NOTE | 2021-10-06 05:55 | EKG12_ITS ---
Test Reason : AM EKG Blood Pressure : / mmHG Vent. Rate : 075 BPM Atrial Rate : 075 BPM P-R Int : 206 ms QRS Dur : 086 ms QT Int : 402 ms P-R-T Axes : 053 032 047 degrees QTc Int : 448 ms Normal sinus rhythm Normal ECG When compared with ECG of 05-OCT-2021 21:48, MANUAL COMPARISON REQUIRED, DATA IS UNCONFIRMED Confirmed by BECKIE RENAE, IVAN ([id number]), publications editor TINY MONET ([id number]) on 10/07/2021 11:21:46 AM Referred By: JOSEPH Confirmed By:IVAN BUTTS MD
[2021-10-06 06:41] LABS: Bedside Glucose 236 mg/dL (70-110)
[2021-10-06] MEDS: 0.9% Saline Lock 10 ML Syringe IV (06:47)
[2021-10-06] MEDS: Morphine 2 MG/ML Syringe IV (06:47)
[2021-10-06] MEDS: Lisinopril 10 MG Tablet PO (06:47)
[2021-10-06] MEDS: Levothyroxine 125 MCG Tablet 250 MCG PO (06:50)
[2021-10-06] MEDS: Aspirin E.C. 81 MG Tablet PO (06:52)
[2021-10-06 07:17] LABS: Absolute Lymphocyte Count 2.33 X10^3/uL (0.83-4.51); Absolute Neutrophil Count 4.2 X10^3/uL (2.0-7.7); Basophil# 0.07 X10^3/uL; Basophil% 0.9 % (0-1); Eosinophil# 0.22 X10^3/uL; Hematocrit 37.5 % (37-47); Hemoglobin 12.8 g/dL (12.0-15.0); Lymphocyte # 2.33 X10^3/ul (0.83-4.51); Lymphocyte % 31.4 % (19-41); Mean Corp Hgb Conc 34.1 g/dL (32-36); Mean Corpuscular Hgb 29.4 pg (27.0-32.0); Mean Corpuscular Volume 86.2 fL (81-99); Mean Platelet Vol. 10.1 fl (6.2-12.0); Monocyte# 0.54 X10^3/uL; Monocyte% 7.3 % (0-10); NRBC Flagged by Analyzer 0 % (0-5); Neutrophil # 4.19 X10^3/uL (2.7-7.7); Neutrophil % 56.6 % (47-70); Platelet Count 334 K/mm3 (150-450); RBC Distribution Width CV 13.4 % (11.6-14.6); RBC Distribution Width SD 41.6 fl (35.1-43.9); Red Blood Count 4.35 M/mm3 (4.2-5.4); White Blood Count 7.4 K/mm3 (4.4-11.0)
[2021-10-06 08:30] LABS: Anion Gap 9 (5-15); BUN 15 mg/dL (7-18); BUN/Creat Ratio 22.1 RATIO (10-20); Calcium,Total 8.7 mg/dL (8.5-10.1); Chloride 101 mmol/L (98-107); Cholesterol 436 mg/dL (200); Creatinine, Serum 0.68 mg/dL (0.55-1.02); EST Glomerular Filtration Rate 97 mL/min (>60); Est Glom Filt Rate - Afr Amer 118 mL/min (>60); Estimated Creatinine Clearance 85.47 ml/min; Glucose 229 mg/dL (74-106); High Density Lipoprotein 24 mg/dL; Potassium 3.8 mmol/L (3.5-5.1); Sodium Level 133 mmol/L (136-145); Thyroid Stim Hormone (TSH) 2.39 uIU/mL (0.358-3.74); Triglycerides 2700 mg/dL
--- NOTE | 2021-10-06 10:56 | NURSING ---
[facility] late d/t pt off floor for testing.
[2021-10-06 11:40] LABS: Bedside Glucose 202 mg/dL (70-110)
--- NOTE | 2021-10-06 12:12 | STRESSREP ---
Stress Test Report Pharmacologic myocardial perfusion stress test. 51-year-old lady with a history of hypertension diabetes mellitus and chest pain. Stress protocol: Resting EKG demonstrates normal sinus rhythm with a rate of 74 bpm normal intervals are noted resting blood pressure is 118/80 mmHg. 0.4 mg of regadenoson was infused per usual protocol followed by rapid intravenous saline flush injection continuous EKG monitoring was performed. The maximum heart rate attained was 95 bpm which was 55% of max impact at heart rate the maximum workload was 1 metabolic equivalent. At rest there were no ST or T wave changes noted to suggest abnormal flow reserve and at peak infusion nonspecific ST changes were noted with did not meet the criteria for ischemia. No clinical angina was noted. Myocardial perfusion protocol. 14.5 mCi of technetium 99m sestamibi was injected at rest. 0.4 mg of regadenoson was infused. Protocol. At peak infusion 44.1 mCi of technetium 99m sestamibi was injected stress images were obtained stress and rest images were reconstructed and compared in the short axis vertical long horizontal long axis. Gated images were also obtained. Perfusion SPECT analysis: Review of the stress images demonstrate normal uptake of tracer noted in all areas of the myocardium. The resting images similarly demonstrate normal uptake of tracer noted in all areas of the myocardium. No areas of reversibility are noted suggest ischemia and no previous infarct is noted. Gated SPECT analysis: The gated ejection fraction is 78%. Conclusion: Normal pharmacologic myocardial perfusion stress test. Preserved ejection fraction.
[2021-10-06] MEDS: Multivitamins,Ther W-Minerals Tablet 1 TABLET PO (12:46)
[2021-10-06] MEDS: Pantoprazole Sodium 40 MG Tablet PO (12:46)
[2021-10-06] MEDS: Fenofibrate 145 MG Tablet PO (12:46)
--- NOTE | 2021-10-06 13:33 | DS.PCM_ITS ---
Providers Date of Admission: 10/05/21 Primary Care Physician: Dr. Sajan Cantu MD Reason For Visit: CHEST PAIN Diagnosis Discharge Diagnosis (1) Chest pain of uncertain etiology: Status: Acute Code(s): R07.9 - Chest pain, unspecified Medications at Discharge Home Medications Basaglmarlena GarciaikPen U-100 Insulin 34 unit SUBCUT QHS 06/05/21 fenofibrate 134 mg PO DAILY 06/05/21 levothyroxine 200 mcg PO DAILY 06/05/21 lisinopril 10 mg PO DAILY 06/05/21 metformin 1,000 mg PO BID 06/05/21 omeprazole 40 mg PO DAILY 06/05/21 Multivitamin Women 50 Plus 1 tab PO DAILY 09/13/21 Trulicity 0.75 mg SUBCUT QWEEK 09/13/21 atorvastatin 80 mg PO DAILY 09/13/21 biotin 5,000 mcg SUBLINGUAL DAILY 09/13/21 levothyroxine 50 mcg PO DAILY #30 tab 09/13/21 gabapentin 300 mg PO TID 10/05/21 Hospital Course Operations None Procedures 2-D Echocardiogram and Stress test Summary of Care Provided Minutes Spent on Discharge: 35 Hospital Course: Patient is a 51-year-old female with a past medical history of hypertension, hyperlipidemia and hypertriglyceridemia, hypothyroidism diabetes mellitus as well as nicotine dependence. She was admitted through the ED on 10/05/2021 with complaint of chest pain which was intermittent and not been going on for about a month and a half and worsened on the day of presentation. Chest pain was dull and substernal and radiated to her back. She rated it at 8 out of 10 and was worsened by movement. It also radiated to her back and she had associated nausea and diaphoresis. She also had a still lightheadedness and vertigo and generalized body pain. Initial troponin was negative. Chest x-ray showed no acute cardiopulmonary for stress and EKG showed some Q waves in V1 and V2. She was admitted and managed for chest pain to rule out ACS. She had stress test on 10/06/2021 which was negative for any evidence of ischemia. She also had 2D echo which showed EF of 60% in stage I diastolic dysfunction but was otherwise normal. Patient remained stable and was discharged home on 10/06/2021. Of note, patient was noted to have markedly elevated try glycerides of more than 2000 and markedly elevated cholesterol of more than 400. Patient claims adherence to her cholesterol medication as well as a fenofibrate. There was no other record of labs in the EMR to compare with. Patient informed me that she was moving to [place] to be closer to family and plan to follow-up with physicians in [place]. Patient was counseled to be compliant with her cholesterol and blood pressure medications and to also quit smoking. She is to follow-up with her primary care doctor in [place]. Patient seen and examined prior to discharge. She had no active complaints and review of stents otherwise negative. Labs and vitals reviewed. Home medication reviewed and reconciled. Physical Exam Const alert, oriented x3 and no apparent distress General Appearance: cooperative, comfortable and well kempt Exam Limitations: no limitations Nutritional Appearance: morbidly obese HEENT normocephalic, head/scalp atraumatic and hearing grossly normal bilaterally Eyes PERRL, EOMs intact bilaterally and conjunctivae normal Neck no lymphadenopathy Resp normal respiratory effort, no retractions, no use of accessory muscles and clear to auscultation bilaterally Cardio regular rate, regular rhythm, S1 normal heart sound, S2 normal heart sound and no murmurs GI normal to inspection, nondistended, normoactive bowel sounds, soft to palpation and non-tender Extremity normal to inspection, full ROM and no clubbing, cyanosis or edema Skin no rashes or lesions noted, no wounds and skin turgor normal Neuro oriented x3, CN's II-XII intact bilaterally and moves all extremities Sensorium / Orientation: awake and alert Psych affect normal Weight / BMI Weight Weight: 275 lb 9.245 oz Body Mass Index (BMI) 47.2 ABG / Lab / Microbiology Data Result Diagrams: 10/06/21 06:05 10/06/21 06:05 Laboratory: Laboratory Results - last 24 hr 10/05/21 15:16: WBC 9.4, RBC 4.55, Hgb 14.6, Hct 39.2, MCV 86.2, MCH 32.1 H, MCHC 37.2 H, RDW Std Deviation 42.2, RDW Coeff of Yoandy 13.5, Plt Count 394, MPV 10.3, Immature Gran % (Auto) 1.100 H, Neut % (Auto) 52.4, Lymph % (Auto) 37.4, [place] % (Auto) 6.2, Eos % (Auto) 2.2, Baso % (Auto) 0.7, Absolute Neuts (auto) 4.9, Absolute Lymphs (auto) 3.50, Nucleated RBC % 0 10/05/21 15:16: Sodium 131 L, Potassium 4.0, Chloride 99, Carbon Dioxide 21.0, Anion Gap 11, BUN 16, Creatinine 0.95, Estim Creat Clear Calc 61.18, Est GFR (MDRD) Af Amer 80, Est GFR (MDRD) Non-Af 66, BUN/Creatinine Ratio 16.9, Glucose 327 H, Calcium 9.1, Troponin I High Sens 7 10/05/21 19:35: Troponin I High Sens 6 10/05/21 21:43: POC Glucose 200 H 10/05/21 22:15: Troponin I High Sens 6 10/06/21 00:10: POC Glucose 285 H 10/06/21 06:05: WBC 7.4, RBC 4.35, Hgb 12.8, Hct 37.5, MCV 86.2, MCH 29.4, MCHC 34.1 D, RDW Std Deviation 41.6, RDW Coeff of Yoandy 13.4, Plt Count 334, MPV 10.1, Immature Gran % (Auto) 0.800, Neut % (Auto) 56.6, Lymph % (Auto) 31.4, [place] % (Auto) 7.3, Eos % (Auto) 3.0, Baso % (Auto) 0.9, Absolute Neuts (auto) 4.2, Absolute Lymphs (auto) 2.33, Nucleated RBC % 0 10/06/21 06:05: Sodium 133 L, Potassium 3.8, Chloride 101, Carbon Dioxide 23.0, Anion Gap 9, BUN 15, Creatinine 0.68, Estim Creat Clear Calc 85.47, Est GFR (MDRD) Af Amer 118, Est GFR (MDRD) Non-Af 97, BUN/Creatinine Ratio 22.1 H, Glucose 229 H, Calcium 8.7, Triglycerides 2700 H, Cholesterol 436 H, LDL Cholesterol TNP, VLDL Cholesterol TNP, HDL Cholesterol 24 L, TSH 2.39 10/06/21 06:34: POC Glucose 236 H 10/06/21 11:34: POC Glucose 202 H Radiography Diagnostic Testing: Radiology Impression Chest X-Ray 10/05/21 15:15 IMPRESSION: No acute cardiopulmonary process. Electronically Signed: Richmond Hubbard MD at 15:54 EST Tel , Service support , Echocardiogram 10/05/21 21:22 Interpretation Summary Normal LV size. Left ventricular systolic function is normal. The estimated ejection fraction is 60 %. Stage 1 diastolic dysfunction. Contrast injection was performed. Ordering Physician: Joey Olsen Referring Physician: MD Sajan Cantu Performed By: Stephen Reyes RCS D/C Instructions Discharge Diet: Low fat / Low cholesterol Discharge Activity: Return to Normal Activity Weight Bearing Status: Weight bearing as tolerated Call your doctor if you observe: Shortness of breath, Dizziness, Swelling in the ankles, Chest pain and Increased palpitations (irregular heartbeat) Meaningful Use Info Meaningful Use Diagnoses (Choose all that apply): None applicable Discharge Plan Admission Admit Date/Time: 10/05/21 19:34 Primary Reason for Your Visit: chest pain Attending Provider: Larisa Castro Primary Care Provider: Sajan Cantu Discharge Orders/Prescriptions Prescriptions: Continued levothyroxine 200 mcg Capsule 200 mcg PO DAILY RF: 0 metformin 1,000 mg Tablet 1,000 mg PO BID RF: 0 lisinopril 10 mg Tablet 10 mg PO DAILY RF: 0 Basaglar KwikPen U-100 Insulin 100 unit/mL (3 mL) Insulin Pen 34 unit SUBCUT QHS RF: 0 fenofibrate 54 mg Tablet 134 mg PO DAILY RF: 0 omeprazole 40 mg Capsule,Delayed Release(Dr/Ec) 40 mg PO DAILY RF: 0 atorvastatin 80 mg tablet 80 mg PO DAILY RF: 0 Trulicity 0.75 mg/0.5 mL pen injector 0.75 mg SUBCUT QWEEK RF: 0 Multivitamin Women 50 Plus 8 mg iron-400 mcg-300 mcg Tablet 1 tab PO DAILY RF: 0 biotin 5,000 mcg Tablet, Sublingual 5,000 mcg SUBLINGUAL DAILY RF: 0 levothyroxine 50 mcg tablet 50 mcg PO DAILY Qty: 30 RF: 0 gabapentin 300 mg capsule 300 mg PO TID RF: 0 Referrals / Follow Up: Sajan Cantu MD [Primary Care Provider] - Within 2 Weeks Disposition Disposition (needs filled in before D/C Order can be placed): Home, Self Care Charges/Coding Visit Charges OBSV E&M: 57690 Observation care discharge
--- NOTE | 2021-10-06 14:16 | PHA.DC.MR ---
Pharmacy Service has performed discharge medication reconciliation for this patient. The patient's discharge medication list was reviewed for discrepancies and discrepancies were resolved. Home Medications Basaglar [place]omal U-100 Insulin 34 unit SUBCUT QHS 06/05/21 fenofibrate 134 mg PO DAILY 06/05/21 levothyroxine 200 mcg PO DAILY 06/05/21 lisinopril 10 mg PO DAILY 06/05/21 metformin 1,000 mg PO BID 06/05/21 omeprazole 40 mg PO DAILY 06/05/21 Multivitamin Women 50 Plus 1 tab PO DAILY 09/13/21 Trulicity 0.75 mg SUBCUT QWEEK 09/13/21 atorvastatin 80 mg PO DAILY 09/13/21 biotin 5,000 mcg SUBLINGUAL DAILY 09/13/21 levothyroxine 50 mcg PO DAILY #30 tab 09/13/21 gabapentin 300 mg PO TID 10/05/21
== END 2021-10-06 13:40 | disposition home or self-care (01) ==
LOC: ED 19:38 → PCU 20:11
PROVIDERS: Admitting Provider Hospitalist; Emergency Provider Emergency Medicine; PCP Family Medicine; Visit Provider Student in an Organized Health Care Education/Training Program
DX: R07.89 Other chest pain (principal); I10 Essential (primary) hypertension; E03.9 Hypothyroidism, unspecified; E11.9 Type 2 diabetes mellitus without complications; Z23 Encounter for immunization; M32.9 Systemic lupus erythematosus, unspecified; E66.9 Obesity, unspecified; E11.42 Type 2 diabetes mellitus with diabetic polyneuropathy; F17.210 Nicotine dependence, cigarettes, uncomplicated; E78.5 Hyperlipidemia, unspecified; E11.65 Type 2 diabetes mellitus with hyperglycemia; Z79.899 Other long term (current) drug therapy; Z68.42 Body mass index [BMI] 45.0-49.9, adult; Z79.4 Long term (current) use of insulin; Z79.890 Hormone replacement therapy
CPT/HCPCS: 36415; 71045; 78452; 80048; 80061; 82962; 84443; 84484; 85025; 93005; 93017; 93306; 96374; 99218; 99285; 99406; A9500; G0008; Q9957; 90686; A4216; C8929; G0378; J2785; J3490